=== PATIENT | male | born 1945 | race Caucasian/White ===

== ENCOUNTER 2020-06-28 18:00 | Outpatient (REF) | payer MEDICARE, SELFPAY ==
[2020-06-29 12:13] LABS: Leukocytes Stool Qualitative NEGATIVE (NEGATIVE)
== END 2020-06-28 18:01 | disposition home or self-care (01) ==
LOC: HO.10HDL 18:00
PROVIDERS: Visit Provider Internal Medicine Gastroenterology
DX: R19.7 Diarrhea, unspecified (principal)
CPT/HCPCS: 87045; 87046; 87177; 87209; 89055

== ENCOUNTER → 2020-07-05 12:52 | Outpatient (BNVA) | payer MEDICARE, SELFPAY | PROVIDERS: PCP Internal Medicine; Referring Provider Internal Medicine; Visit Provider Internal Medicine Cardiovascular Disease | DX: I25.10 Atherosclerotic heart disease of native coronary artery without angina pectoris (principal); I48.19 Other persistent atrial fibrillation; I73.9 Peripheral vascular disease, unspecified | CPT/HCPCS: 93005; 99212 ==

== ENCOUNTER 2020-07-29 08:37 | Outpatient (REF) | payer MEDICARE, SELFPAY ==
[2020-07-29 10:34] LABS: Alanine Aminotransferase 13 U/L (0-40); Albumin Level 3.5 g/dL (3.5-5.0); Alkaline Phosphatase 75 U/L (39-117); Anion Gap 11 (12-20); Aspartate Amino Transferase 13 U/L (5-37); Bilirubin Total 0.8 mg/dL (0.0-1.0); Blood Urea Nitrogen 14 mg/dL (9-16); Carbon Dioxide 29 mmol/L (22-29); Chloride 107 mmol/L (96-108); Cholesterol 113 mg/dL; Estimated Glomerular Filt Rate > 60; Glucose Fasting 98 mg/dL (60-99); HDL Cholesterol 34 mg/dL; LDL Cholesterol Calculated 69 mg/dl; Potassium 3.7 mmol/l (3.3-5.1); Sodium 143 mmol/L (135-145); Total Protein 5.6 g/dL (6.5-8.0); Triglycerides 52 mg/dL
== END 2020-07-29 08:38 | disposition home or self-care (01) ==
LOC: HO.10HDL 08:37
PROVIDERS: Visit Provider Internal Medicine
DX: E78.5 Hyperlipidemia, unspecified (principal); I73.9 Peripheral vascular disease, unspecified; I10 Essential (primary) hypertension; I25.10 Atherosclerotic heart disease of native coronary artery without angina pectoris
CPT/HCPCS: 36415; 80053; 80061

== ENCOUNTER → 2020-11-15 14:47 | Outpatient (BNVA) | payer MEDICARE, SELFPAY | PROVIDERS: PCP Internal Medicine; Visit Provider Internal Medicine Cardiovascular Disease | DX: I48.19 Other persistent atrial fibrillation (principal); I25.10 Atherosclerotic heart disease of native coronary artery without angina pectoris | CPT/HCPCS: 93005; 99212 ==

== ENCOUNTER → 2021-05-19 13:10 | Outpatient (BNVA) | payer MEDICARE, SELFPAY | PROVIDERS: PCP Internal Medicine; Referring Provider Internal Medicine; Visit Provider Internal Medicine Cardiovascular Disease | DX: I48.19 Other persistent atrial fibrillation (principal); I25.10 Atherosclerotic heart disease of native coronary artery without angina pectoris; I10 Essential (primary) hypertension; I73.9 Peripheral vascular disease, unspecified; E78.5 Hyperlipidemia, unspecified; Z95.1 Presence of aortocoronary bypass graft; Z95.5 Presence of coronary angioplasty implant and graft; Z79.899 Other long term (current) drug therapy | CPT/HCPCS: 99212 ==

== ENCOUNTER → 2021-07-18 12:51 | Outpatient (REF) | payer MEDICARE, SELFPAY ==
--- NOTE | 2021-07-18 12:54 | CA_ITS ---
Transthoracic Echocardiogram Patient (Last, First, Middle): Gustavo Pierre, Gender: Male Date of : 1945 Age: 75 Procedure Date: 07/18/2021 Procedure Type: Transthoracic Echocardiogram Location: OP Height: 182.88 cm Weight: 97.52 kg BSA: 2.20 m2 Heart Rate: bpm BP: 125 / 70 mmHg Rn Plastic Surgery: TOM Referring MD: Tono Jenkins MD Symptoms: I48.19 - Other persistent atrial fibrillation Study Quality: Fair ECG Rhythm: Atrial Fibrillation Conclusions: - The left ventricular systolic function is normal. The visually estimated ejection fraction is between 55-60%. - The basal inferior segment is hypokinetic. - Moderately increased right ventricular cavity size. - The left atrium is severely dilated. - e - There is mild dilatation of the ascending aorta measuring 4.00 cm. Findings Left Ventricle Normal left ventricular cavity size. There is mildly increased left ventricular wall thickness. The left ventricular systolic function is normal. The visually estimated ejection fraction is between 55-60%. Diastolic function is indeterminate on the basis of available data. Wall Motion Rest Echo Findings The basal inferior segment is hypokinetic. Right Ventricle Moderately increased right ventricular cavity size. There is normal right ventricular systolic function. Atria The left atrium is severely dilated. The right atrium is mildly dilated. Aortic Valve There is mild calcification of the aortic valve. There is no aortic valve stenosis. The mean gradient is 6 mmHg. There is no aortic valve regurgitation. Mitral Valve There is mild mitral annular calcification. There is mild to moderate mitral valve regurgitation. There is no mitral valve stenosis. Pulmonic Valve The pulmonic valve was not well visualized. Tricuspid Valve Normal tricuspid valve structure. There is trace tricuspid valve regurgitation. The pulmonary artery systolic pressure is normal. Great Vessels There is mild dilatation of the ascending aorta measuring 4.00 cm. Venous The inferior vena cava is normal in size and collapses greater than 50% with inspiration. Pericardium/Pleural There is no evidence of pericardial effusion. Prior Study Comparison Changes noted compared to prior study dated: 08/14/2017. See comments on wall motion, RV size, mitral regurgitation. Measurements 2D Linear Measurements IVSd: 1.07 0.6-0.9/0.6-1.0 cm LVIDd: 5.08 3.9-5.3/4.2-5.9 cm LVIDd Index: 2.31 2.4-3.2/2.2-3.1 cm/m2 LVIDs: 3.47 2.0-3.6 cm LVPWd: 1.11 0.7-1.1 cm Ao Root: 4.00 2.1-3.5 cm LA Diam: 4.90 2.7-3.8/3.0-4.0 cm LAIDs Index: 2.23 1.5-2.3 cm/m2 LV Mass: 261.62 67-162/88-224 g LV Mass Index: 118.92 43-95/49-115 g/m2 LVOT Diam: 2.10 3.0+(-)1.3 cm 2D Systolic Function EF 4C: 52.60 >55% EF 2C: 55.00 >55% EF BiP: 52.70 >55% Mitral Valve MV Pk E: 0.91 MV Decel Time: 210.00 E'Lateral: 12.90 E'Medial: 8.27 E/E' Med: 11.00 E/E' Lat: 7.10 PHT: 62.00 MVA PHT: 3.55 Decel [place]: 4.34 Aortic Valve AoV Pk Luiz: 1.69 AoV Mn Luiz: 1.14 AoV VTI: 0.39 AoV Pk Grad: 11.00 Aov Mn Grad: 6.00 TY Cont.VTI: 1.94 LVOT LVOT Pk Luiz: 0.88 LVOT Mn Luiz: 0.57 LVOT VTI: 0.22 LVOT Pk Grad: 3.00 LVOT Mn Grad: 2.00 LVOT Diam: 2.10 LVOT Area: 3.46 Diastolic Function MV Pk E: 0.91 E'Medial: 8.27 E/E' Med: 11.00 E' Laterial: 12.90 E/E' Lat: 7.10 Right Ventricle TAPSE (mm): 21.20 TVS' Luiz: 9.36 Tricuspid Valve TR Pk Luiz: 1.91 TR Pk Grad: 15.00 RA Press: 3.00 RVSP: 18.00 Great Vessels Aorta Ao Root-2D: 4.00 2.0-3.7 cm Ao Asc: 4.00 2.1-3.4 cm Ao Arch: 3.60 Updated in Other Vendor System with Status of Final Lavon Bar MD electronically signed on 07/18/2021 3:56:05 PM with status of Final
== END ==
LOC: HO.CARD 12:51
PROVIDERS: PCP Internal Medicine; Visit Provider Internal Medicine Cardiovascular Disease
DX: I48.19 Other persistent atrial fibrillation (principal)
CPT/HCPCS: 93306

== ENCOUNTER → 2021-11-15 12:52 | Outpatient (BNVA) | payer MEDICARE, SELFPAY | PROVIDERS: PCP Internal Medicine; Referring Provider Internal Medicine; Visit Provider Internal Medicine Cardiovascular Disease | DX: I25.10 Atherosclerotic heart disease of native coronary artery without angina pectoris (principal); I48.19 Other persistent atrial fibrillation | CPT/HCPCS: 93005; 99212 ==

== ENCOUNTER 2022-04-11 07:30 | Outpatient (REF) | payer MEDICARE, SELFPAY ==
[2022-04-11 11:00] LABS: MANUAL DIFF FLAG NO
[2022-04-11 11:13] LABS: Basophils Absolute Auto 0.1 X10*3/uL (0.0-0.2); Basophils Percent Auto 0.8 % (0-2); Eosinophils Absolute Auto 0.1 X10*3/uL (0.0-0.4); Eosinophils Percent Auto 1.6 % (0-4); Hematocrit 43.1 % (42.0-52.0); Hemoglobin 14.2 g/dl (14.0-18.0); Imm Gran Abs Auto 0.05 X10*3/uL (0.00-0.03); Imm Gran Pct Auto 0.6 % (0.0-0.4); Lymphocytes Absolute Auto 1.7 X10*3/uL (1.2-4.9); Mean Corpuscular HGB Conc 32.9 g/dl (31.0-36.0); Mean Corpuscular Hemoglobin 31.7 pg (27.0-33.0); Mean Corpuscular Volume 96.2 fL (80.0-98.0); Mean Platelet Volume 11.3 fL (9.4-12.4); Monocytes Absolute Auto 0.8 X10*3/uL (0.1-1.2); Monocytes Percent Auto 10.5 % (2-11); Neutrophils Percent Auto 64.5 % (45-73); Platelet Count 197 X10*3/uL (160-400); Red Blood Count 4.48 X10*6/uL (4.60-5.80); White Blood Count 7.7 X10*3/uL (4.8-10.8)
[2022-04-11 11:28] LABS: Alanine Aminotransferase 15 U/L (0-40); Albumin Level 3.7 g/dL (3.5-5.0); Alkaline Phosphatase 86 U/L (39-117); Anion Gap 14 (12-20); Aspartate Amino Transferase 16 U/L (5-37); Bilirubin Total 1.2 mg/dL (0.0-1.0); Blood Urea Nitrogen 13 mg/dL (9-16); Calcium 8.4 mg/dL (8.4-10.2); Carbon Dioxide 32 mmol/L (22-29); Chloride 102 mmol/L (96-108); Cholesterol 128 mg/dL; Estimated Glomerular Filt Rate > 60; Glucose Fasting 97 mg/dL (60-99); HDL Cholesterol 34 mg/dL; LDL Cholesterol Calculated 85 mg/dl; Potassium 3.1 mmol/L (3.3-5.1); Sodium 145 mmol/L (135-145); Total Protein 5.9 g/dL (6.5-8.0); Triglycerides 48 mg/dL
[2022-04-11 11:49] LABS: PSA,Total (Free>4and<10) 3.96 ng/mL (0.00-4.00)
== END 2022-04-11 07:31 | disposition home or self-care (01) ==
LOC: HO.10HDL 07:30
PROVIDERS: Visit Provider Internal Medicine
DX: Z00.01 Encounter for general adult medical examination with abnormal findings (principal); N40.0 Benign prostatic hyperplasia without lower urinary tract symptoms; E78.5 Hyperlipidemia, unspecified; I10 Essential (primary) hypertension; I25.10 Atherosclerotic heart disease of native coronary artery without angina pectoris; I48.19 Other persistent atrial fibrillation; I73.9 Peripheral vascular disease, unspecified; Z12.5 Encounter for screening for malignant neoplasm of prostate
CPT/HCPCS: 36415; 80053; 80061; 84153; 85025

== ENCOUNTER 2022-04-28 07:55 | Outpatient (REF) | payer MEDICARE, SELFPAY | END 2022-04-28 07:56 | disposition home or self-care (01) | LOC: HO.10HDL 07:55 | PROVIDERS: Visit Provider Internal Medicine | DX: E87.6 Hypokalemia (principal) | CPT/HCPCS: 36415; 84132 ==

== ENCOUNTER → 2022-05-16 12:22 | Outpatient (BNVA) | payer MEDICARE, SELFPAY | PROVIDERS: PCP Internal Medicine; Referring Provider Internal Medicine; Visit Provider Internal Medicine Cardiovascular Disease | DX: I25.10 Atherosclerotic heart disease of native coronary artery without angina pectoris (principal); I48.19 Other persistent atrial fibrillation; I71.20 Thoracic aortic aneurysm, without rupture, unspecified | CPT/HCPCS: 99212 ==

== ENCOUNTER 2022-10-12 12:11 | Outpatient (REF) | payer MEDICARE, SELFPAY ==
[2022-10-12 13:21] LABS: MANUAL DIFF FLAG NO
[2022-10-12 13:29] LABS: Basophils Absolute Auto 0.1 X10*3/uL (0.0-0.2); Basophils Percent Auto 0.8 % (0-2); Eosinophils Absolute Auto 0.1 X10*3/uL (0.0-0.4); Eosinophils Percent Auto 1.1 % (0-4); Hematocrit 44.9 % (42.0-52.0); Hemoglobin 14.7 g/dl (14.0-18.0); Imm Gran Abs Auto 0.04 X10*3/uL (0.00-0.03); Imm Gran Pct Auto 0.6 % (0.0-0.4); Lymphocytes Absolute Auto 1.7 X10*3/uL (1.2-4.9); Lymphocytes Percent Auto 24.1 % (20-40); Mean Corpuscular HGB Conc 32.7 g/dl (31.0-36.0); Mean Corpuscular Hemoglobin 32.2 pg (27.0-33.0); Mean Corpuscular Volume 98.2 fL (80.0-98.0); Mean Platelet Volume 11.6 fL (9.4-12.4); Monocytes Absolute Auto 0.7 X10*3/uL (0.1-1.2); Monocytes Percent Auto 9.4 % (2-11); Neutrophils Absolute Auto 4.6 x10*3/uL (2.0-8.3); Platelet Count 163 X10*3/uL (160-400); Red Blood Count 4.57 X10*6/uL (4.60-5.80); Red Cell Distribution Width 12.6 % (11.0-16.0); White Blood Count 7.2 X10*3/uL (4.8-10.8)
[2022-10-12 14:14] LABS: Alanine Aminotransferase 12 U/L (0-40); Anion Gap 10 (12-20); Aspartate Amino Transferase 14 U/L (5-37); Blood Urea Nitrogen 16 mg/dL (9-16); Calcium 8.4 mg/dL (8.4-10.2); Carbon Dioxide 29 mmol/L (22-29); Chloride 106 mmol/L (96-108); Cholesterol 112 mg/dL; Estimated Glomerular Filt Rate > 60; Glucose Fasting 94 mg/dL (60-99); HDL Cholesterol 31 mg/dL; LDL Cholesterol Calculated 71 mg/dl; Potassium 3.9 mmol/L (3.3-5.1); Sodium 141 mmol/L (135-145); Triglycerides 53 mg/dL
[2022-10-12 14:40] LABS: PSA,Total (Free>4and<10) 5.53 ng/mL (0.00-4.00); Vitamin D 25-OH Total 12.3 ng/mL (>30)
[2022-10-16 13:29] LABS: Free Prostate Spec Ag 0.6 ng/mL; Percent Free Prostate Spec Ag 11 % (calc) (>25); Prostate Specific Ag Total 5.3 ng/mL (< OR = 4.0)
== END 2022-10-12 12:12 | disposition home or self-care (01) ==
LOC: HO.10HDL 12:11
PROVIDERS: Visit Provider Internal Medicine
DX: Z12.5 Encounter for screening for malignant neoplasm of prostate (principal); I10 Essential (primary) hypertension; I25.10 Atherosclerotic heart disease of native coronary artery without angina pectoris; I48.19 Other persistent atrial fibrillation; I71.20 Thoracic aortic aneurysm, without rupture, unspecified; I73.9 Peripheral vascular disease, unspecified; N40.0 Benign prostatic hyperplasia without lower urinary tract symptoms
CPT/HCPCS: 36415; 80048; 80061; 82306; 84153; 84154; 84450; 84460; 85025

== ENCOUNTER → 2022-10-30 15:00 | Outpatient (REF) | payer MEDICARE, SELFPAY ==
--- NOTE | 2022-10-30 15:03 | CA_ITS ---
Transthoracic Echocardiogram Patient (Last, First, Middle): Gustavo Pierre, Gender: Male Date of : 1945 Age: 77 Procedure Date: 10/30/2022 Procedure Type: Transthoracic Echocardiogram Location: OP Height: 182.88 cm Weight: 96.16 kg BSA: 2.18 m2 Heart Rate: bpm BP: 128 / 70 mmHg Technology Training Associate: Referring MD: Tono Jenkins MD Revenue Enforcement Agent: Tono Jenkins MD Symptoms: I71.20 - Thoracic aortic aneurysm, without rupture, unspecified Study Quality: Adequate ECG Rhythm: Atrial Fibrillation Conclusions: - 1. Normal LV systolic function with mild LVH with normal filling pressures 2. Mildly increased right ventricular size with [id number] RV systolic dysfunction 3. Severely dilated left atrium 4. Normal cardiac valvular Dopplers 5. Normal RV systolic pressure 6. Mildly dilated ascending aorta at 4 cm 7. No gross pericardial effusion Findings Left Ventricle Normal left ventricular size and systolic function. There is mildly increased left ventricular wall thickness. The visually estimated ejection fraction is between 55-60%. Normal left ventricular filling pressures. E/E prime ratio is <8, consistent with normal filling pressures. Right Ventricle Mildly increased right ventricular cavity size. There is mild to moderately decreased right ventricular systolic function. Atria The left atrium is severely dilated. There is lipomatous hypertrophy of the interatrial septum. There is no evidence of interatrial shunt. The right atrium is moderately dilated. Aortic Valve There is mild calcification of the aortic valve. There is mild thickening of the aortic valve. There is no aortic valve stenosis. There is no aortic valve regurgitation. Mitral Valve There is mild anterior and posterior mitral leaflet thickening. There is mild mitral annular calcification. There is trace mitral valve regurgitation. There is no mitral valve stenosis. Pulmonic Valve The pulmonic valve was not well visualized. Tricuspid Valve Likely normal tricuspid valve structure and function. There is mild tricuspid valve regurgitation. The right ventricular systolic pressure is normal. The right ventricular systolic pressure is 24 mmHg. Normal right atrial pressure. There is no evidence of pulmonary hypertension. Great Vessels The pulmonary artery was not well visualized. There is mild dilatation of the ascending aorta measuring 4.00 cm. Venous The inferior vena cava is normal in size and collapses greater than 50% with inspiration. Pericardium/Pleural There is no evidence of pericardial effusion. Prior Study Comparison No significant change compared to prior study dated: 07/18/2021. Measurements 2D Linear Measurements IVSd: 1.31 0.6-0.9/0.6-1.0 cm LVIDd: 4.22 3.9-5.3/4.2-5.9 cm LVIDd Index: 1.94 2.4-3.2/2.2-3.1 cm/m2 LVIDs: 2.78 2.0-3.6 cm LVPWd: 1.35 0.7-1.1 cm Ao Root: 3.70 2.1-3.5 cm LA Diam: 5.50 2.7-3.8/3.0-4.0 cm LAIDs Index: 2.52 1.5-2.3 cm/m2 LV Mass: 260.53 67-162/88-224 g LV Mass Index: 119.51 43-95/49-115 g/m2 LVOT Diam: 2.30 3.0+(-)1.3 cm 2D Systolic Function EF 4C: 62.30 >55% EF 2C: 56.30 >55% EF BiP: 58.50 >55% Mitral Valve MV Pk E: 0.92 MV Decel Time: 285.00 E'Lateral: 14.60 E'Medial: 10.40 E/E' Med: 8.80 E/E' Lat: 6.30 PHT: 83.00 MVA PHT: 2.65 Decel [place]: 3.22 Aortic Valve AoV Pk Luiz: 1.85 AoV Mn Luiz: 1.13 AoV VTI: 0.38 AoV Pk Grad: 14.00 Aov Mn Grad: 6.00 TY Cont.VTI: 1.27 LVOT LVOT Pk Luiz: 0.65 LVOT Mn Luiz: 0.38 LVOT VTI: 0.12 LVOT Pk Grad: 2.00 LVOT Mn Grad: 1.00 LVOT Diam: 2.30 LVOT Area: 4.15 Diastolic Function MV Pk E: 0.92 E'Medial: 10.40 E/E' Med: 8.80 E' Laterial: 14.60 E/E' Lat: 6.30 Right Ventricle TAPSE (mm): 15.00 TVS' Luiz: 6.00 Tricuspid Valve TR Pk Luiz: 2.30 TR Pk Grad: 21.00 RA Press: 3.00 RVSP: 24.00 Great Vessels Aorta Ao Root-2D: 3.70 2.0-3.7 cm Ao Asc: 4.00 2.1-3.4 cm Pulmonary Valve PV Pk Luiz: 0.67 Peak PV Grad: 2.00 Updated in Other Vendor System with Status of Final Tono Jenkins MD electronically signed on 10/31/2022 11:59:14 AM with status of Final
== END ==
LOC: HO.CARD 15:00
PROVIDERS: Visit Provider Internal Medicine Cardiovascular Disease
DX: I71.20 Thoracic aortic aneurysm, without rupture, unspecified (principal)
CPT/HCPCS: 93306

== ENCOUNTER → 2022-11-14 12:20 | Outpatient (BNVA) | payer MEDICARE, SELFPAY | PROVIDERS: PCP Internal Medicine; Referring Provider Internal Medicine; Visit Provider Internal Medicine Cardiovascular Disease | DX: I48.19 Other persistent atrial fibrillation (principal); I25.10 Atherosclerotic heart disease of native coronary artery without angina pectoris; I71.20 Thoracic aortic aneurysm, without rupture, unspecified | CPT/HCPCS: 93005; 99212 ==

== ENCOUNTER 2023-02-27 11:29 | Outpatient (AMB) | payer MEDICARE, SELFPAY ==
--- NOTE | 2023-02-27 11:33 | MHC.PC.OV ---
Vital Signs 02/27/23 11:37 Height 6 ft Weight 205 lb BMI 27.8 BP 118/66 Blood Pressure Location Lt brachial Position Sitting Pulse 81 Pulse Source Pulse Oximeter Pulse Oximetry (%) 97 Oxygen Delivery Method Room Air Intake Visit Reasons: cataract surgery, Dr. Hernandez Intake Note: Pt is here today for pre-op Lt eye phacoemulsification w/ an intraocular lens implant w/ Dr. Hernandez Allergies No Known Allergies Allergy (Verified 02/27/23 11:41) Medication List - Last Reconciled 02/27/23 by Krupa Vail MD apixaban 5 mg PO BID atenolol 100 mg PO DAILY atenolol 50 mg PO DAILY atorvastatin 80 mg PO DAILY cilostazol 100 mg PO BID isosorbide mononitrate ER 30 mg PO DAILY potassium chloride ER 10 mEq PO DAILY tamsulosin 0.4 mg PO DAILY Tobacco use date assessed: 02/27/23 Fall risk assessment: No Falls in past year Last assessed Fall Risk: 02/27/23 Dental Screening Dental Screen Date: 02/27/23 Did you have a dental visit in the last 12 months?: Yes Did you have a dental problem in the last 6 months where you did not have access to dental care?: No Was dental information given to patient?: Patient has dentist HPI cataract surgery, Dr. Hernandez HPI Details 77-year-old male with history of thoracic aortic aneurysm, benign prostatic hyperplasia, persistent atrial fibrillation currently on apixaban, with history of peripheral vascular disease and hypertension, here today for preoperative exam for left eye phacoemulsification with an intraocular lens implant scheduled for 03/08/2023, requested by Dr. Hernandez. He has been feeling well, with no complaints of any chest pain no lightheadedness, no abnormal bleeding tendencies, or shortness of breath. Blood pressure stable controlled on present treatment he PFSH Medical History CAD (coronary artery disease) Heel pain, bilateral HTN (hypertension) Hyperlipidemia Persistent atrial fibrillation PVD (peripheral vascular disease) Smokes one pack per day or less and unmotivated to quit Surgical History History of repair of aneurysm of abdominal aorta using endovascular stent graft Hx of aorto-femoral bypass Hx of basal cell carcinoma excision Hx of colonoscopy Hx of heart bypass surgery Family History Father No problems noted. Mother No problems noted. Family/Other AAA (abdominal aortic aneurysm) CVD (cardiovascular disease) Cancer Social History Housing: House Patient Tobacco Use Status: Current everyday Tobacco user Cigarette Packs Per Day: 1 Cigarettes Per Day: 20 e-Cigarette/Vaping Use: Never Used service: No Current occupational status: employed Cognitive needs: No Hearing needs: No Vision needs: No Questionnaire Thrive Questionnaire Date Thrive assessed: 04/10/22 ARTUR-7 AMB Questionnaire ARTUR-7 Date ARTUR - 7 assessed: 04/10/22 Source: Developed by Drs. Alonso Dave, Juanita Gtz, Satish Alonso and colleagues, with an educational donald from [email or web address]. Review of Systems Const Denies chills, Denies fatigue, Denies fever(s), Denies frequent falls, Denies headache(s), Denies weakness, Denies weight gain and Denies weight loss Eyes Reports blurry vision ENT Denies dizziness, Denies headache(s), Denies hoarseness, Denies nasal congestion and Denies post nasal drip Card Denies chest pain, Denies leg edema, Denies lightheadedness, Denies palpitations, Denies dyspnea, Denies dyspnea on exertion, Denies orthopnea and Denies other (loss of consciousness) Resp Denies cough, Denies dyspnea and Denies dyspnea on exertion GI Denies abdominal pain, Denies melena, Denies hematochezia, Denies change in bowel habits, Denies change in stool character and Denies heartburn Reports no additional complaints Musc Denies abnormal gait, Denies muscle weakness, Denies numbness, Denies radiating pain into limb and Denies tingling Skin/Breast Denies rash, Denies sores and Denies unusual bruising Neuro Denies abnormal gait, Denies dizziness, Denies frequent falls, Denies headache(s), Denies numbness, Denies tingling and Denies weakness Endo Denies fatigue and Denies palpitations Remigio/Lymph Reports easy bruising Physical exam (Primary Care) Vital Signs: Last Vital Signs Pulse 81 02/27/23 11:37 BP 118/66 02/27/23 11:37 Pulse Ox 97 02/27/23 11:37 Oxygen Delivery Method Room Air 02/27/23 11:37 BMI result Body Mass Index 27.8 Tobacco/Smoking Status: Tobacco use Status Tobacco use date assessed 02/27/23 02/27/23 11:42 Patient Tobacco Use Status Current everyday Tobacco 02/27/23 11:42 e-Cigarette/Vaping Use Never Used 02/27/23 11:42 Thrive Assessment: Date of Thrive Assessment Date Thrive assessed 04/10/22 02/27/23 11:42 Const Other: Alert oriented x3, no acute distress noted ambulatory with normal gait HENMT Head: Yes normocephalic and Yes atraumatic Ears: EAC's normal and hearing grossly impaired General nose exam: No nasal discharge present Face and sinus: Yes face symmetric Mouth: oropharynx normal and moist mucous membranes Eyes General: appearance normal, both eyes and all related structures Neck Neck: Yes full ROM, Yes no lymphadenopathy, Yes supple and No anterior neck swelling Thyroid: Thyroid normal Resp Effort & Inspection: normal respiratory effort and able to speak in complete sentences Auscultation: clear to auscultation bilaterally Cardio Rhythm: abnormal rhythm irregularly irregular GI Inspection: Yes normal to inspection Palpation (GI): Soft to palpation, nontender, no guarding and no masses Auscultation: normal bowel sounds General: Yes no CVA tenderness Back/Spine/Pelvis Back: no CVA tenderness and No back tenderness Skin Other: Dry skin all throughout, no rashes Neuro General: gait normal, moves all extremities, Normal light touch and pain sensation, no focal motor deficits and CN's II-XI intact bilaterally Extrem Other: Decreased pedal pulses bilaterally General: Yes full ROM, Yes no joint enlargement, Yes no clubbing, cyanosis or edema, Yes no pedal edema, Yes no calf tenderness and Yes normal gait Assessment and Plan Assessment & Plan (1) Preoperative examination: Code(s): Z01.818 - Encounter for other preprocedural examination Plan: 77-year-old male, here for pre-op clearance for left cataract surgery, requested by Dr. Hernandez , scheduled for 03/08/2023. He has history of coronary artery disease with remote history of CABG x3 . He has persistent atrial fibrillation and peripheral vascular disease, currently anticoagulated with apixaban, with no unusual bleeding tendencies reported. He continues to smoke cigarettes , has been cutting back, with no respiratory complaints and no chronic cough. He has hypertension, which is controlled on present treatment. He has no pulmonary or cardiac complaints, and preop examination was within normal limits. EKG done 10/30/2022 showed atrial fibrillation with right axis deviation, and Echocardiogram done 11/14/2022 showed Normal LV systolic function with mild LVH, normal filling pressures, mildly increased right ventricular size with [id number] RV systolic dysfunction, Severely dilated left atrium?, normal cardiac valvular Dopplers, Normal RV systolic pressure ,mMildly dilated ascending aorta at 4 cm?, and no gross pericardial effusion seen. No. need to withhold apixaban prior surgery. . He has a low cardiac risk index? for proposed surgery ? ? ? (2) Thoracic aortic aneurysm: Code(s): I71.20 - Thoracic aortic aneurysm, without rupture, unspecified Plan: Asymptomatic, currently being followed by vascular surgery (3) Benign prostate hyperplasia: Code(s): N40.0 - Benign prostatic hyperplasia without lower urinary tract symptoms Plan: Currently on tamsulosin 0.4 mg daily (4) PVD (peripheral vascular disease): Code(s): I73.9 - Peripheral vascular disease, unspecified Plan: On cilostazol 100 mg 1 tablet twice a day, patient strongly urged to quit smoking, is cutting back, but unable to completely quit the habit (5) CAD (coronary artery disease): Code(s): I25.10 - Atherosclerotic heart disease of [place] coronary artery without angina pectoris Plan: Currently on atenolol 100 mg daily, isosorbide mononitrate 30 mg daily and atorvastatin 80 mg daily, (6) HTN (hypertension): Code(s): I10 - Essential (primary) hypertension Plan: Blood pressure at goal of less than 130/80. Continue with current medication. Reinforced importance of following a low sodium diet, getting regular exercise, and lowering stress levels. (7) Persistent atrial fibrillation: Code(s): I48.19 - Other persistent atrial fibrillation Plan: Currently on apixaban 5 mg 1 tablet twice a day (8) Smokes one pack per day or less and unmotivated to quit: Code(s): F17.210 - Nicotine dependence, cigarettes, uncomplicated Plan: Patient strongly advised to stop smoking, as smoking damages blood vessels, degenerative of joints and spine, damage to lungs and heart., predisposes to developing certain cancers like lung, breast, bladder, colon. Recommended to try decreasing cigarette use by 1-2 cigarettes a day. Advised to monitor what triggers are for smoking so that this can be discussed on the next office visit. We can discuss different options to quit smoking when ready. Coding Level of Care Code Est Pt Level 4 (40227) Diagnoses Preoperative examination Z01.818 Thoracic aortic aneurysm I71.20 Benign prostate hyperplasia N40.0 PVD (peripheral vascular disease) I73.9 CAD (coronary artery disease) I25.10 HTN (hypertension) I10 Persistent atrial fibrillation I48.19 Smokes one pack per day or less and unmotivated to quit F17.210
[2023-02-27 11:37] VITALS: BP 118/66; PULSE 81; O2SAT 97; BMI 27.8
== END 2023-02-27 13:49 | disposition home or self-care (01) ==
PROVIDERS: PCP Internal Medicine; Visit Provider Internal Medicine
DX: I10 Essential (primary) hypertension (principal); I71.20 Thoracic aortic aneurysm, without rupture, unspecified; I48.19 Other persistent atrial fibrillation; F17.210 Nicotine dependence, cigarettes, uncomplicated; I73.9 Peripheral vascular disease, unspecified; Z01.818 Encounter for other preprocedural examination; N40.0 Benign prostatic hyperplasia without lower urinary tract symptoms; I25.10 Atherosclerotic heart disease of native coronary artery without angina pectoris
CPT/HCPCS: 99214

== ENCOUNTER → 2023-11-01 08:29 | Outpatient (REF) | payer MEDICARE, SELFPAY ==
--- NOTE | ~2023-11-01 | NM_ITS ---
Myocardial perfusion study Indication: Atherosclerotic heart disease to evaluate for myocardial ischemia Technique: The patient was brought in for a Lexiscan perfusion study on 11/01/2023. Patient performed low-level exercise and was injected 0.4 mg of Lexiscan intravenously. Within a minute of injection, 30 mCi of sestamibi was given intravenously. Images were obtained using the SPECT gamma camera interlaced with the gating device. Images were obtained in supine position. Resting perfusion study was performed on 11/08/2023. Patient was administered 30 mCi of sestamibi intravenously at rest. Images were then obtained in supine position. Images obtained with and without CT attenuation. Total DLP 134 mGy-cm. Images were processed with the software and compared side to side in short axis, horizontal long axis and vertical long axis views. Findings: The stress perfusion study showed non attenuated images show mildly reduced uptake in the inferior and inferolateral wall of the LV myocardium. Remainder of the LV myocardium is normally perfused. Attenuation corrected images show overall normal uptake of radiotracer in all segments of LV myocardium with minimal thinning of the apex.. The gated study shows reduced LV systolic function with calculated LVEF of 49%. LV cavity is mildly dilated size. The gated study shows reduced wall thickening and contraction of basal inferior segments. Resting study shows no significant change in perfusion pattern compared to stress perfusion study. Gating at rest reveals basal inferior wall motion abnormality with ejection fraction at 54%. The findings are consistent with no clear reversible defect suggestive of ischemia. NM/NM yvonne perf SPECT rest & str Impression: 1. Myocardial perfusion imaging study shows likely normal myocardial perfusion 2. Gated LVEF is 49% 3. Transient ischemic dilatation not present EKG is nondiagnostic for ischemia
--- NOTE | 2023-11-01 09:17 | CA_ITS ---
Transthoracic Echocardiogram Patient (Last, First, Middle): Gustavo Chávez, Gender: Male Date of : 1945 Age: 78 Procedure Date: 11/01/2023 Procedure Type: Transthoracic Echocardiogram Location: OP Height: 182.88 cm Weight: 99.79 kg BSA: 2.22 m2 Heart Rate: bpm BP: 110 / 72 mmHg Parole Agent: TO Referring MD: Tono Jenkins MD Symptoms: I71.20 - Thoracic aortic aneurysm, without rupture, unspecified Study Quality: Fair Conclusions: - Normal left ventricular cavity size. There is mildly increased left ventricular wall thickness. The left ventricular systolic function is low normal. The visually estimated ejection fraction is between 50-55%. - Mildly increased right ventricular cavity size. There is mild to moderately decreased right ventricular systolic function. - The left atrium is moderately dilated. The right atrium is mildly dilated. - There is mild dilatation of the sinuses of Valsalva measuring 4.15 cm and mild dilatation of the ascending aorta measuring 4.30 cm. Findings Left Ventricle Normal left ventricular cavity size. There is mildly increased left ventricular wall thickness. The left ventricular systolic function is low normal. The visually estimated ejection fraction is between 50-55%. There is no evidence of regional wall motion abnormalities. Diastolic function is indeterminate on the basis of available data. Right Ventricle Mildly increased right ventricular cavity size. There is mild to moderately decreased right ventricular systolic function. Atria The left atrium is moderately dilated. The right atrium is mildly dilated. Aortic Valve There is a normal trileaflet aortic valve. There is mild calcification of the aortic valve. There is no aortic valve stenosis. There is no aortic valve regurgitation. Mitral Valve There is mild mitral annular calcification. There is mild mitral valve regurgitation. There is no mitral valve stenosis. Pulmonic Valve The pulmonic valve is normal. There is trace pulmonic valve regurgitation. Tricuspid Valve Normal tricuspid valve structure. There is trace tricuspid valve regurgitation. Moderately elevated right atrial pressure. There is no evidence of pulmonary hypertension. Great Vessels There is mild dilatation of the sinuses of Valsalva measuring 4.15 cm and mild dilatation of the ascending aorta measuring 4.30 cm. The visualized portions of the pulmonary artery and branches are normal. Venous The inferior vena cava is mildly dilated and collapses greater than 50% with inspiration. Pericardium/Pleural There is no evidence of pericardial effusion. Measurements 2D Linear Measurements IVSd: 1.22 0.6-0.9/0.6-1.0 cm LVIDd: 4.66 3.9-5.3/4.2-5.9 cm LVIDd Index: 2.10 2.4-3.2/2.2-3.1 cm/m2 LVIDs: 3.56 2.0-3.6 cm LVPWd: 1.06 0.7-1.1 cm LA Diam: 4.50 2.7-3.8/3.0-4.0 cm LAIDs Index: 2.03 1.5-2.3 cm/m2 LV Mass: 242.38 67-162/88-224 g LV Mass Index: 109.18 43-95/49-115 g/m2 LVOT Diam: 2.40 3.0+(-)1.3 cm 2D Systolic Function EF 4C: 46.50 >55% EF 2C: 48.60 >55% EF BiP: 46.10 >55% Mitral Valve MV VTI: 0.31 MV Pk Luiz: 0.98 MV Mn Luiz: 0.52 MV Pk Grad: 4.00 MV Mn Grad: 1.00 MV Pk E: 0.92 MV Decel Time: 185.00 E'Lateral: 12.20 E'Medial: 8.20 E/E' Med: 11.20 E/E' Lat: 7.50 PHT: 54.00 MVA PHT: 4.07 MVA Continuity: 1.94 Decel [place]: 5.06 MR Vol - PW Dopp: 12.60 MR VTI: 1.80 MR ERO: 7.00 MR Alias Luiz: 0.39 MR RAD: 0.40 Aortic Valve AoV Pk Luiz: 1.49 AoV Mn Luiz: 1.07 AoV VTI: 0.32 AoV Pk Grad: 9.00 Aov Mn Grad: 5.00 TY Cont.VTI: 1.89 LVOT LVOT Pk Luiz: 0.66 LVOT Mn Luiz: 0.41 LVOT VTI: 0.13 LVOT Pk Grad: 2.00 LVOT Mn Grad: 1.00 LVOT Diam: 2.40 LVOT Area: 4.52 Diastolic Function MV Pk E: 0.92 E'Medial: 8.20 E/E' Med: 11.20 E' Laterial: 12.20 E/E' Lat: 7.50 Right Ventricle TAPSE (mm): 14.10 TVS' Luiz: 7.25 Tricuspid Valve TR Pk Luiz: 1.77 TR Pk Grad: 13.00 RA Press: 8.00 RVSP: 21.00 Great Vessels Aorta Sinus of Valsalva: 4.15 2.0-3.5 cm Ao Asc: 4.30 2.1-3.4 cm Ao Arch: 3.10 Updated in Other Vendor System with Status of Final Yuan Amaro MD electronically signed on 11/02/2023 7:20:24 PM with status of Final
--- NOTE | 2023-11-01 09:17 | CA_ITS ---
Acquisition Time: 2023-11-01 10:06:51 Total Exercise Time: 00:02:00 Test Indications: AFIB,CAD Medications: APIXABAN ATENOLOL ATORVASTATIN CILOSTAZOL ISOSORBIDE TAMSULOSIN Protocol: LEXISCAN Max HR: 098 BPM 69% of Pred: 141 BPM Max BP: 134/072 mmHG Max Work Load: 1.0 METS Pharmacological stress test with Lexiscan injection while sitting and marching in place due to low 60s heart rate, with frequent PVCs and ventricular cuplets, with normotensive response to injection, with nondiagnoisitic EKGs. Nuclear images pending. Test reviewed with Dr. Amaro. Referred By: Tono Jenkins Overread By: Lina Blake
== END ==
LOC: HO.CARD 08:29
PROVIDERS: PCP Internal Medicine; Visit Provider Internal Medicine Cardiovascular Disease
DX: I71.20 Thoracic aortic aneurysm, without rupture, unspecified (principal); I25.10 Atherosclerotic heart disease of native coronary artery without angina pectoris
CPT/HCPCS: 78452; 93017; 93306; A9500; J0280; J2785

== ENCOUNTER → 2023-11-01 09:17 | Outpatient (BNV) | payer MEDICARE, SELFPAY | PROVIDERS: PCP Internal Medicine; Visit Provider Nurse Practitioner | DX: I25.10 Atherosclerotic heart disease of native coronary artery without angina pectoris (principal) | CPT/HCPCS: 78452; 93016; 93018; 93350 ==

== ENCOUNTER 2023-11-20 13:24 | Outpatient (AMB) | payer BC, SELFPAY ==
[2023-11-20 13:28] VITALS: BP 130/74; PULSE 76; BMI 27.8
--- NOTE | 2023-11-20 13:28 | A.OFFVIS_ITS ---
Vital Signs 11/20/23 13:28 Height 6 ft Weight 205 lb 0.478 oz BMI 27.8 BP 130/74 Blood Pressure Location Lt brachial Position Sitting Pulse 76 Intake Visit Reasons: 1 yr s/p echo Intake Note: 1 year follow-up after echo with ekg feeling good Primary Health Care Nurse Required: No Allergies No Known Allergies Allergy (Verified 08/22/23 14:02) Medication List - Last Reconciled 11/20/23 by Tono Jenkins MD apixaban 5 mg PO BID atenolol 50 mg PO DAILY atenolol 100 mg PO DAILY atorvastatin 80 mg PO DAILY cilostazol 100 mg PO BID isosorbide mononitrate ER 30 mg PO DAILY potassium chloride ER 10 mEq PO DAILY tamsulosin 0.4 mg PO DAILY HPI Comments Details: Gustavo comes for follow-up. He had recent myocardial perfusion imaging which was within normal limits. LV ejection fraction 50-55%. Mildly dilated ascending aorta which has remained stable. Continues unfortunately to smoke. No recurrent palpitations or progressive symptoms of heart failure. Continues to have exertional shortness of breath. Denies any orthopnea, PND, leg edema. Continues to have symptoms of claudication walking 100 yd, sees vascular surgery at [facility]. No bleeding issues or neurologic events. Takes all his medications regularly. [facility] Medical History Heel pain, bilateral Smokes one pack per day or less and unmotivated to quit Persistent atrial fibrillation HTN (hypertension) Hyperlipidemia CAD (coronary artery disease) PVD (peripheral vascular disease) Surgical History History of repair of aneurysm of abdominal aorta using endovascular stent graft Hx of aorto-femoral bypass Hx of heart bypass surgery Hx of colonoscopy Hx of basal cell carcinoma excision Family History Father No problems noted. Mother No problems noted. Family/Other AAA (abdominal aortic aneurysm) CVD (cardiovascular disease) Cancer Social History Housing: House Patient Tobacco Use Status: Current everyday Tobacco user Cigarette Packs Per Day: 1 Cigarettes Per Day: 20 e-Cigarette/Vaping Use: Never Used service: No Current occupational status: employed Cognitive needs: No Hearing needs: No Vision needs: No Review of Systems Const Denies chills, Denies fatigue, Denies fever(s), Denies frequent falls, Denies weakness, Denies weight gain and Denies weight loss ENT Denies dizziness Card Denies chest pain, Denies leg edema, Denies lightheadedness, Denies palpitations, Denies dyspnea, Denies dyspnea on exertion, Denies orthopnea and Denies other (loss of consciousness) Resp Denies cough, Denies dyspnea and Denies dyspnea on exertion GI Denies hematochezia and Denies change in stool character Musc Denies abnormal gait, Denies muscle weakness, Denies numbness, Denies radiating pain into limb and Denies tingling Neuro Denies abnormal gait, Denies dizziness, Denies frequent falls, Denies numbness, Denies tingling and Denies weakness Endo Denies fatigue and Denies palpitations Physical Exam Vital Signs: Last Vital Signs Pulse 76 11/20/23 13:28 BP 130/74 11/20/23 13:28 BMI result Body Mass Index 27.8 Const General: cooperative, comfortable, no acute distress, alert and awake Nutritional Appearance: overweight Orientation/consciousness: patient oriented x3 Limitations: no limitations Neck Neck: Yes trachea midline, Yes supple and Yes no JVD Chest Chest palpation & inspection: normal inspection of the chest Resp Effort & Inspection: normal respiratory effort Auscultation: clear to auscultation bilaterally and diminished lung sounds Cardio Jugular venous distension: no JVD Rhythm: abnormal rhythm irregularly irregular Heart sounds: S1 normal heart sound present and S2 normal heart sound present Peripheral pulses: posterior tibial pulses not present and dorsalis pedis pulses not present GI Auscultation: normal bowel sounds Neuro General: patient oriented x3 and no focal motor deficits Extrem General: No clubbing, No cyanosis and Yes edema (Right lower extremity) Psych Appearance: grossly normal Office Procedures EKG Details: EKG shows atrial fibrillation with PVCs with deep T-wave inversion inferior leads [id number]-[id number], Complete Assessment & Plan Assessment & Plan (1) CAD (coronary artery disease): Code(s): I25.10 - Atherosclerotic heart disease of [place] coronary artery without angina pectoris Category: Medical Plan: CAD with remote coronary artery bypass grafting with recent surveillance myocardial perfusion imaging within normal limits. Continue aggressive medical therapy. Currently on dual antianginal therapy with atenolol and isosorbide doing well. Advised to call me with any new symptoms. Currently on full oral anticoagulation Eliquis and therefore would avoid additional antiplatelet agent. Continue high-intensity statin therapy. Advised lipid panel near future. Target goal LDL less than 70 mg/dL. (2) Persistent atrial fibrillation: Code(s): I48.19 - Other persistent atrial fibrillation Category: Medical Plan: Persistent and rate control atrial fibrillation without any new symptoms. No signs or symptoms of heart failure. Continue rate control strategy. Continue full oral anticoagulation, currently on Eliquis. Semi annual renal function test is recommended. (3) Thoracic aortic aneurysm: Code(s): I71.20 - Thoracic aortic aneurysm, without rupture, unspecified Category: Medical Plan: Mild thoracic aortic aneurysm which has remained stable. No interventions required. Continue aggressive vascular risk factor modifications above. Continue to monitor annually by echocardiogram. Will follow up in the clinic 1 year's time after an echocardiogram. Thank you for allowing me to partake in his care Coding Level of Care Code Est Pt Level 4 (81044) Diagnoses CAD (coronary artery disease) I25.10 Persistent atrial fibrillation I48.19 Thoracic aortic aneurysm I71.20 CPT Codes EKG - CPT: 53447-[id number], Complete ([id number])
== END 2023-11-20 14:00 | disposition home or self-care (01) ==
PROVIDERS: Visit Provider Internal Medicine Cardiovascular Disease
DX: I25.10 Atherosclerotic heart disease of native coronary artery without angina pectoris (principal); I48.19 Other persistent atrial fibrillation; I71.20 Thoracic aortic aneurysm, without rupture, unspecified
CPT/HCPCS: 93010; 99214

== ENCOUNTER → 2023-11-20 13:24 | Outpatient (BNVA) | payer SELFPAY | PROVIDERS: Visit Provider Internal Medicine Cardiovascular Disease | DX: I25.10 Atherosclerotic heart disease of native coronary artery without angina pectoris (principal); I48.19 Other persistent atrial fibrillation; I71.20 Thoracic aortic aneurysm, without rupture, unspecified; Z79.01 Long term (current) use of anticoagulants | CPT/HCPCS: 93005 ==

== ENCOUNTER 2024-02-05 09:35 | Outpatient (AMB) | payer BC, SELFPAY ==
--- NOTE | 2024-02-05 09:40 | MHC.PC.OV ---
Vital Signs 02/05/24 09:43 Height 6 ft Weight 199 lb BMI 27.0 BP 110/66 Blood Pressure Location Lt brachial Position Sitting Pulse 96 Pulse Source Pulse Oximeter Pulse Oximetry (%) 98 Oxygen Delivery Method Room Air Intake Visit Reasons: PE Intake Note: Pt is here for annual PE. Allergies No Known Allergies Allergy (Verified 02/11/24 01:36) Medication List - Last Reconciled 02/05/24 by Krupa Vail MD apixaban 5 mg PO BID atenolol 100 mg PO DAILY atenolol 50 mg PO DAILY atorvastatin 80 mg PO DAILY cilostazol 100 mg PO BID isosorbide mononitrate ER 30 mg PO DAILY potassium chloride ER 10 mEq PO DAILY tamsulosin 0.4 mg PO DAILY Tobacco use date assessed: 02/05/24 Fall risk assessment: No Falls in past year Last assessed Fall Risk: 02/05/24 Dental Screening Dental Screen Date: 02/05/24 Did you have a dental visit in the last 12 months?: Yes Did you have a dental problem in the last 6 months where you did not have access to dental care?: No Was dental information given to patient?: Patient has dentist HPI PE HPI Details 78 year-old male with history of thoracic aortic aneurysm, benign prostatic hyperplasia, persistent atrial fibrillation currently on apixaban, has peripheral vascular disease and hypertension, here today for his physical exam . He states that he has been feeling well, with no new complaints at present time. Continues to smoke 1 pack a day with no desire to quit. currently followed at [facility] vascular surgery . Has no new complaints at present time. [facility] Medical History Elevated PSA, less than 10 ng/ml Peripheral arterial disease with history of revascularization Heel pain, bilateral Smokes one pack per day or less and unmotivated to quit Persistent atrial fibrillation HTN (hypertension) Hyperlipidemia CAD (coronary artery disease) PVD (peripheral vascular disease) Surgical History History of repair of aneurysm of abdominal aorta using endovascular stent graft Hx of aorto-femoral bypass Hx of heart bypass surgery Hx of colonoscopy Hx of basal cell carcinoma excision Family History Father No problems noted. Mother No problems noted. Family/Other AAA (abdominal aortic aneurysm) CVD (cardiovascular disease) Cancer Social History Housing: House Patient Tobacco Use Status: Current everyday Tobacco user Cigarette Packs Per Day: 1 Cigarettes Per Day: 20 e-Cigarette/Vaping Use: Never Used service: No Current occupational status: employed Cognitive needs: No Hearing needs: No Vision needs: No Questionnaire PHQ-9 Over the last 2 weeks, how often have you been bothered by any of the following problems? 1. Little interest or pleasure in doing things: not at all 2. Feeling down, depressed, or hopeless: not at all 3. Trouble falling or staying asleep, or sleeping too much: not at all 4. Feeling tired or having little energy: not at all 5. Poor appetite or overeating: not at all 6. Feeling bad about yourself - or that you are a failure or have let yourself or your family down: not at all 7. Trouble concentrating on things, such as reading the newspaper or watching television: not at all 8. Moving or speaking so slowly that other people could have noticed. Or the opposite - being so fidgety or restless that you have been moving around a lot more than usual: not at all 9. Thoughts that you would be better off or of hurting yourself in some way: not at all Total score: 0 Depression Screening Interpretation: Negative Depression Screening Done: Yes 11724 - PHQ-9 Billing: Yes Source: Developed by Drs. Alonso Dave, Juanita Gtz, Satish Alonso and colleagues, with an educational donald from [employer]. Thrive Questionnaire Date Thrive assessed: 02/05/24 I am a: Patient What is your living situation today?: I have a steady place to live Within the past 12 months, did the food you bought not last and you didn't have the money to get more?: I choose not to answer this question Within the past 12 months, did you worry whether your food would run out before you got money to buy more?: I choose not to answer this question Do you have trouble paying for medicines?: No Do you have trouble getting transportation to medical appointments?: No Do you have trouble paying your heating and electricity bill?: No Do you have trouble taking care of your child, family member or friend?: No Do you have trouble with day-to-day activities such as bathing, preparing meals, shopping, managing finances, etc.?: No Are you currently unemployed and looking for a job?: No Are you interested in more education?: No Please select the resources that you would like help with: Housing/Long Term Currently or been in a relationship where the following occur: I choose not to answer THRIVE Score: 0 AUDIT C Alcohol Use Questionnaire (AUDIT-C) 1. How often do you have a drink containing alcohol?: Never Total Score: 0 ARTUR-7 AMB Questionnaire ARTUR-7 Date ARTUR - 7 assessed: 02/05/24 Feeling nervous, anxious, or on edge: 0 = Not at all Not being able to stop or control worryin = Not at all Worrying too much about different things: 0 = Not at all Trouble relaxin = Not at all Being so restless that it is hard to sit still: 0 = Not at all Becoming easily annoyed or irritable: 0 = Not at all Feeling afraid as if something awful might happen: 0 = Not at all Total ARTUR-7 score (0-4 normal; 5-9 mild; 10-14 moderate; 15-21 severe): 0 Source: Developed by Drs. Alonso Dave, Juanita Gtz, Satish Alonso and colleagues, with an educational donald from [employer] ARTUR-7 Assessment Billing ARTUR-7 Assessment Tool: ARTUR-7 Assessment 92863 Review of Systems Const Denies fatigue, Denies fever(s), Denies frequent falls, Denies headache(s) and Denies weakness Eyes Reports blurry vision ENT Denies dizziness, Denies headache(s), Denies hoarseness, Denies nasal congestion and Denies post nasal drip Card Denies chest pain, Denies leg edema, Denies lightheadedness, Denies palpitations, Denies dyspnea, Denies dyspnea on exertion, Denies orthopnea and Denies other (loss of consciousness) Resp Denies cough, Denies dyspnea and Denies dyspnea on exertion GI Denies abdominal pain, Denies melena, Denies hematochezia, Denies change in bowel habits, Denies change in stool character and Denies heartburn Reports no additional complaints Musc Denies abnormal gait, Denies muscle weakness, Denies numbness and Denies radiating pain into limb Skin/Breast Denies rash, Denies sores and Denies unusual bruising Neuro Denies abnormal gait, Denies dizziness, Denies frequent falls, Denies headache(s), Denies numbness and Denies weakness Psych Reports no additional complaints Endo Denies fatigue and Denies palpitations Remigio/Lymph Reports easy bruising Aller/Immun Reports no additional complaints Physical exam (Primary Care) Vital Signs: Last Vital Signs Pulse 96 02/05/24 09:43 BP 110/66 02/05/24 09:43 Pulse Ox 98 02/05/24 09:43 Oxygen Delivery Method Room Air 02/05/24 09:43 BMI result Body Mass Index 27.0 Tobacco/Smoking Status: Tobacco use Status Tobacco use date assessed 02/05/24 02/05/24 09:43 Patient Tobacco Use Status Current everyday Tobacco 02/05/24 09:40 e-Cigarette/Vaping Use Never Used 02/05/24 09:40 PHQ-9: PHQ-9 Score PHQ-9: Total score 0 02/05/24 10:33 Depression Screening Interpretation: Negative Thrive Assessment: Date of Thrive Assessment Date Thrive assessed 02/05/24 02/05/24 09:43 Currently or been in a relationship where the following occur: I choose not to answer Const Other: Alert oriented x3, no acute distress noted ambulatory with normal gait HENMT Head: Yes normocephalic Ears: EAC's normal and hearing grossly impaired General nose exam: No nasal discharge present Face and sinus: Yes face symmetric Mouth: oropharynx normal and moist mucous membranes Eyes General: appearance normal, both eyes and all related structures Neck Neck: Yes full ROM, Yes no lymphadenopathy, Yes supple and No anterior neck swelling Thyroid: Thyroid normal Chest Chest palpation & inspection: normal inspection of the chest Resp Effort & Inspection: normal respiratory effort and able to speak in complete sentences Auscultation: clear to auscultation bilaterally Cardio Rhythm: abnormal rhythm irregularly irregular GI Inspection: Yes normal to inspection Palpation (GI): Soft to palpation, nontender, no guarding and no masses Auscultation: normal bowel sounds General: Yes no CVA tenderness Back/Spine/Pelvis Back: no CVA tenderness and No back tenderness Skin Other: Dry skin all throughout, no rashes Neuro General: gait normal, moves all extremities, Normal light touch and pain sensation, no focal motor deficits and CN's II-XI intact bilaterally Extrem Other: Decreased pedal pulses bilaterally General: Yes full ROM, Yes no joint enlargement, Yes no clubbing, cyanosis or edema, Yes no pedal edema, Yes no calf tenderness and Yes normal gait Psych Appearance: grossly normal and well kempt Mental Status: mental status grossly normal Speech and movement: Normal speech and movement present Affect: normal affect Thought process: Normal thought process present Thought content: Normal thought content present Assessment and Plan Assessment & Plan (1) Annual visit for general adult medical examination with abnormal findings: Code(s): Z00.01 - Encounter for general adult medical examination with abnormal findings Plan: Will check appropriate labs. Recommended dental visit every 6 months and regular eye exams, at least every 2 years. Take adequate calcium in diet and vitamin-D 3 at 2000 IU per cap once a day, in addition to weight-bearing exercises to help maintain good muscle tone and weight control. Instructed to do testicular exam check for any mass. Up-to-date with all his vaccinations, reminded to get yearly flu shots (2) CAD (coronary artery disease): Code(s): I25.10 - Atherosclerotic heart disease of [place] coronary artery without angina pectoris Qualifiers: Coronary Disease-Associated Artery/Lesion type: [place] artery [place] vs. transplanted heart: [place] heart Associated angina: without angina Qualified Code(s): I25.10 - Atherosclerotic heart disease of [place] coronary artery without angina pectoris Plan: Followed by cardiology, currently on isosorbide mononitrate ER, atorvastatin, atenolol (3) HTN (hypertension): Code(s): I10 - Essential (primary) hypertension Qualifiers: Hypertension type: primary hypertension Qualified Code(s): I10 - Essential (primary) hypertension Plan: Blood pressure at goal of less than 130/80. Continue with current medication. Reinforced importance of following a low sodium diet, getting regular exercise, and lowering stress levels. (4) Persistent atrial fibrillation: Code(s): I48.19 - Other persistent atrial fibrillation Plan: Currently on apixaban 5 mg 1 tablet twice a day (5) Benign prostate hyperplasia: Code(s): N40.0 - Benign prostatic hyperplasia without lower urinary tract symptoms Plan: Followed by Urology currently on tamsulosin 0.4 mg daily and finasteride 5 mg once a day (6) Thoracic aortic aneurysm: Code(s): I71.20 - Thoracic aortic aneurysm, without rupture, unspecified Qualifiers: Thoracic aorta location: unspecified Presence of rupture: without rupture Qualified Code(s): I71.20 - Thoracic aortic aneurysm, without rupture, unspecified Plan: Followed by vascular surgery (7) Peripheral arterial disease with history of revascularization: Code(s): I73.9 - Peripheral vascular disease, unspecified; Z98.890 - Other specified postprocedural states Plan: Followed by vascular clinic at [facility], on cilostazol 100 mg 1 tablet twice a day Orders: Orders PSA,Total (Free>4and<10) 02/05/24 I10 - Essential (primary) hypertension, I25.10 - Atherosclerotic heart disease of [place] coronary artery without angina pectoris, I48.19 - Other persistent atrial fibrillation, I71.20 - Thoracic aortic aneurysm, without rupture, unspecified, I73.9 - Peripheral vascular disease, unspecified, N40.0 - Benign prostatic hyperplasia without lower urinary tract symptoms, Z98.890 - Other specified postprocedural states Vitamin D 25-OH Total 02/05/24 I10 - Essential (primary) hypertension, I25.10 - Atherosclerotic heart disease of [place] coronary artery without angina pectoris, I48.19 - Other persistent atrial fibrillation, I71.20 - Thoracic aortic aneurysm, without rupture, unspecified, I73.9 - Peripheral vascular disease, unspecified, N40.0 - Benign prostatic hyperplasia without lower urinary tract symptoms, Z98.890 - Other specified postprocedural states Complete Blood Count Auto Diff 02/05/24 I10 - Essential (primary) hypertension, I25.10 - Atherosclerotic heart disease of [place] coronary artery without angina pectoris, I48.19 - Other persistent atrial fibrillation, I71.20 - Thoracic aortic aneurysm, without rupture, unspecified, I73.9 - Peripheral vascular disease, unspecified, N40.0 - Benign prostatic hyperplasia without lower urinary tract symptoms, Z98.890 - Other specified postprocedural states Alanine Aminotransferase 02/05/24 I10 - Essential (primary) hypertension, I25.10 - Atherosclerotic heart disease of [place] coronary artery without angina pectoris, I48.19 - Other persistent atrial fibrillation, I71.20 - Thoracic aortic aneurysm, without rupture, unspecified, I73.9 - Peripheral vascular disease, unspecified, N40.0 - Benign prostatic hyperplasia without lower urinary tract symptoms, Z98.890 - Other specified postprocedural states Aspartate Amino Transferase 02/05/24 I10 - Essential (primary) hypertension, I25.10 - Atherosclerotic heart disease of [place] coronary artery without angina pectoris, I48.19 - Other persistent atrial fibrillation, I71.20 - Thoracic aortic aneurysm, without rupture, unspecified, I73.9 - Peripheral vascular disease, unspecified, N40.0 - Benign prostatic hyperplasia without lower urinary tract symptoms, Z98.890 - Other specified postprocedural states Basic Metabolic Panel Fasting 02/05/24 I10 - Essential (primary) hypertension, I25.10 - Atherosclerotic heart disease of [place] coronary artery without angina pectoris, I48.19 - Other persistent atrial fibrillation, I71.20 - Thoracic aortic aneurysm, without rupture, unspecified, I73.9 - Peripheral vascular disease, unspecified, N40.0 - Benign prostatic hyperplasia without lower urinary tract symptoms, Z98.890 - Other specified postprocedural states Lipid Panel 02/05/24 I10 - Essential (primary) hypertension, I25.10 - Atherosclerotic heart disease of [place] coronary artery without angina pectoris, I48.19 - Other persistent atrial fibrillation, I71.20 - Thoracic aortic aneurysm, without rupture, unspecified, I73.9 - Peripheral vascular disease, unspecified, N40.0 - Benign prostatic hyperplasia without lower urinary tract symptoms, Z98.890 - Other specified postprocedural states Coding Level of Care Code Est Pt [facility] Care >65y(65924) Diagnoses Annual visit for general adult medical examination with abnormal findings Z00.01 Coronary artery disease involving [place] coronary artery of [place] heart without angina pectoris I25.10 Coronary Disease-Associated Artery/Lesion type: [place] artery [place] vs. transplanted heart: [place] heart Associated angina: without angina Primary hypertension I10 Hypertension type: primary hypertension Persistent atrial fibrillation I48.19 Benign prostate hyperplasia N40.0 Thoracic aortic aneurysm without rupture, unspecified part I71.20 Thoracic aorta location: unspecified Presence of rupture: without rupture Peripheral arterial disease with history of revascularization I73.9; Z98.890 Additional Codes ARTUR-7 Assessment Billing - ARTUR-7 Assessment Tool: ARTUR-7 Assessment 82309 ([id number])
[2024-02-05 09:43] VITALS: BP 110/66; PULSE 96; O2SAT 98; BMI 27.0
== END 2024-02-05 11:30 | disposition home or self-care (01) ==
PROVIDERS: PCP Internal Medicine; Visit Provider Internal Medicine
DX: Z00.00 Encounter for general adult medical examination without abnormal findings (principal); I48.19 Other persistent atrial fibrillation; I73.9 Peripheral vascular disease, unspecified; I71.20 Thoracic aortic aneurysm, without rupture, unspecified; I25.10 Atherosclerotic heart disease of native coronary artery without angina pectoris; I10 Essential (primary) hypertension; N40.0 Benign prostatic hyperplasia without lower urinary tract symptoms; Z98.890 Other specified postprocedural states
CPT/HCPCS: 99397

== ENCOUNTER 2024-02-05 10:25 | Outpatient (REF) | payer BC, SELFPAY ==
[2024-02-05 12:59] LABS: MANUAL DIFF FLAG NO
[2024-02-05 13:10] LABS: Basophils Absolute Auto 0.1 X10*3/uL (0.0-0.2); Basophils Percent Auto 1.1 % (0-2); Eosinophils Absolute Auto 0.1 X10*3/uL (0.0-0.4); Hematocrit 45.6 % (42.0-52.0); Hemoglobin 15.3 g/dl (14.0-18.0); Imm Gran Abs Auto 0.08 X10*3/uL (0.00-0.03); Lymphocytes Absolute Auto 1.9 X10*3/uL (1.2-4.9); Lymphocytes Percent Auto 22.4 % (20-40); Mean Corpuscular HGB Conc 33.6 g/dl (31.0-36.0); Mean Corpuscular Hemoglobin 32.8 pg (27.0-33.0); Mean Corpuscular Volume 97.9 fL (80.0-98.0); Mean Platelet Volume 12.2 fL (9.4-12.4); Monocytes Absolute Auto 0.8 X10*3/uL (0.1-1.2); Monocytes Percent Auto 9.7 % (2-11); Neutrophils Absolute Auto 5.4 x10*3/uL (2.0-8.3); Neutrophils Percent Auto 64.8 % (45-73); Platelet Count 169 X10*3/uL (160-400); Red Blood Count 4.66 X10*6/uL (4.60-5.80); Red Cell Distribution Width 12.5 % (11.0-16.0); White Blood Count 8.3 X10*3/uL (4.8-10.8)
[2024-02-05 13:34] LABS: Alanine Aminotransferase 12 U/L (0-40); Anion Gap 13 (12-20); Aspartate Amino Transferase 16 U/L (5-37); Blood Urea Nitrogen 15 mg/dL (9-16); Calcium 9.3 mg/dL (8.4-10.2); Carbon Dioxide 28 mmol/L (22-29); Chloride 103 mmol/L (96-108); Cholesterol 108 mg/dL (<200); Estimated Glomerular Filt Rate > 60; Glucose Fasting 99 mg/dL (60-99); HDL Cholesterol 33 mg/dL (>40); LDL Cholesterol Calculated 63 mg/dL (<100); Sodium 140 mmol/L (135-145); Triglycerides 60 mg/dL (<150)
[2024-02-05 13:39] LABS: Vitamin D 25-OH Total 17.5 ng/mL (>30)
[2024-02-05 13:48] LABS: PSA,Total (Free>4and<10) 6.39 ng/mL (0.00-4.00)
[2024-02-07 11:58] LABS: Free Prostate Spec Ag 0.7 ng/mL; Percent Free Prostate Spec Ag 11 % (calc) (>25); Prostate Specific Ag Total 6.5 ng/mL (< OR = 4.0)
== END 2024-02-05 10:26 | disposition home or self-care (01) ==
LOC: HO.HMGCLDS 10:25
PROVIDERS: PCP Internal Medicine; Visit Provider Internal Medicine
DX: I71.20 Thoracic aortic aneurysm, without rupture, unspecified (principal); N40.0 Benign prostatic hyperplasia without lower urinary tract symptoms; I48.19 Other persistent atrial fibrillation; I10 Essential (primary) hypertension; I25.10 Atherosclerotic heart disease of native coronary artery without angina pectoris; I73.9 Peripheral vascular disease, unspecified; Z98.890 Other specified postprocedural states; Z12.5 Encounter for screening for malignant neoplasm of prostate
CPT/HCPCS: 36415; 80048; 80061; 82306; 84153; 84154; 84450; 84460; 85025

== ENCOUNTER 2024-02-08 09:38 | Outpatient (AMB) | payer BC, SELFPAY ==
--- NOTE | 2024-02-08 09:39 | MHC.OFFVIS ---
Intake Visit Reasons: BPH without LUTS/ elevated PSA Intake Note: Patient is present for BPH without LUTS/elevated PSA Urology Medication: Antibiotic Allergy:TAMSULOSIN Blood Thinner: NONE TODAY'S PVR: 0ML'S Video Producer Required: No Allergies No Known Allergies Allergy (Verified 02/08/24 10:09) Medication List - Last Reconciled 02/08/24 by Claudette Pink MD apixaban 5 mg PO BID atenolol 100 mg PO DAILY atenolol 50 mg PO DAILY atorvastatin 80 mg PO DAILY cholecalciferol (vitamin D3) 1,250 mcg PO QWEEK 3 months cilostazol 100 mg PO BID finasteride (Proscar) 5 mg PO DAILY 90 days isosorbide mononitrate ER 30 mg PO DAILY potassium chloride ER 10 mEq PO DAILY tamsulosin 0.4 mg PO DAILY HPI Comments Details: Gustavo is a 78 year old male who is here for evaluation for elevated PSA. PMH significant CAD, PVD on eliquis. Comorbidity Nicotine dependency. He states he smokes about a pack a day. He is on tamsulosin, he states that if he forgets to take this medication he does notice it change in his urination otherwise he has no complaints regarding urination. He denies dysuria or gross hematuria. I have discussed PSA is a blood test, prostate specific antigen and is an enzyme secreted by the prostate gland. Elevated PSA may be due to multiple conditions including prostate inflammatory condition, enlarged prostate or prostate cancer. Prostate exam - no suspicious nodules palpated, irregular left > right. Discussed course of Proscar 5 mg daily. Repeat PSA in 4 months. PSA - 02/05/24--6.39 PSA --10/12/22--5.3 PSA--04/11/22--3.96 [facility] Medical History Elevated PSA, less than 10 ng/ml Peripheral arterial disease with history of revascularization Heel pain, bilateral Smokes one pack per day or less and unmotivated to quit Persistent atrial fibrillation HTN (hypertension) Hyperlipidemia CAD (coronary artery disease) PVD (peripheral vascular disease) Surgical History History of repair of aneurysm of abdominal aorta using endovascular stent graft Hx of aorto-femoral bypass Hx of heart bypass surgery Hx of colonoscopy Hx of basal cell carcinoma excision Family History Father No problems noted. Mother No problems noted. Family/Other AAA (abdominal aortic aneurysm) CVD (cardiovascular disease) Cancer Social History Housing: House Patient Tobacco Use Status: Current everyday Tobacco user Cigarette Packs Per Day: 1 Cigarettes Per Day: 20 e-Cigarette/Vaping Use: Never Used service: No Current occupational status: employed Cognitive needs: No Hearing needs: No Vision needs: No Review of Systems Const All systems reviewed & are unremarkable except as noted in HPI and below Reports no additional complaints Eyes Reports no additional complaints ENT Reports no additional complaints Card Reports no additional complaints Resp Reports no additional complaints GI Reports no additional complaints Reports as per HPI Musc Reports no additional complaints Skin/Breast Reports system reviewed and no additional complaints, except as documented Neuro Reports no additional complaints Psych Reports no additional complaints Endo Reports no additional complaints Remigio/Lymph Reports no additional complaints Aller/Immun Reports no additional complaints Physical Exam Const General: no acute distress and well developed Orientation/consciousness: patient oriented x3 HEENT Head: Yes normocephalic and Yes atraumatic Eyes Conjunctivae: conjunctivae normal Neck Neck: Yes normal visual inspection Chest Chest palpation & inspection: normal inspection of the chest Resp Effort & Inspection: normal respiratory effort Cardio Rate: regular rate GI Inspection: Yes normal to inspection Palpation (GI): Soft to palpation Other: Prostate Exam: Skin General skin exam: no rashes or lesions noted Neuro General: patient oriented x3 Psych Appearance: grossly normal Affect: normal affect Office Procedures Post Void Residual Post Residual Void Post Void Residual (PVR): 0 [id number] Void Residual by ultrasound Assessment & Plan Assessment & Plan (1) Elevated PSA, less than 10 ng/ml: Code(s): R97.20 - Elevated prostate specific antigen [PSA] Category: Medical (2) BPH with elevated PSA: Code(s): N40.0 - Benign prostatic hyperplasia without lower urinary tract symptoms; R97.20 - Elevated prostate specific antigen [PSA] Category: Medical (3) BPH loc w urin obs/LUTS: Code(s): N40.1 - Benign prostatic hyperplasia with lower urinary tract symptoms Category: Medical Plan Elevated PSA. Discussed course of Proscar 5 mg daily. Repeat PSA in 4 months. Orders: Orders UA w Microscopic Today N40.1 - Benign prostatic hyperplasia with lower urinary tract symptoms PSA,Total (Free>4and<10) 4 Months N40.0 - Benign prostatic hyperplasia without lower urinary tract symptoms, R97.20 - Elevated prostate specific antigen [PSA] US retroperitoneal comp 3 Months N40.0 - Benign prostatic hyperplasia without lower urinary tract symptoms, R97.20 - Elevated prostate specific antigen [PSA] Medications: New finasteride (Proscar) 5 mg PO DAILY 90 days 90 tabs 3RF Patient Instructions: The patient had an opportunity to ask questions regarding treatment plan. The patient expressed understanding and agreement with the above treatment plan. The patient is aware they should contact our office by phone for worsening of their current condition or the appearance of new symptoms. Compliance is encouraged with any medications and followup testing that is ordered. It is a privilege to be allowed the opportunity to participate in the urologic care of your patient. If you have any questions or concerns regarding treatment for the above conditions please do not hesitate to contact me. The office telephone contact is [phone]. This note is constructed in part using voice recognition software. While every effort has been made to ensure accuracy fire department marine engineer errors may have been included. Yours sincerely, Claudette Pink MD Coding Level of Care Code New Pt Level 4 (48806) Diagnoses Elevated PSA, less than 10 ng/ml R97.20 BPH with elevated PSA N40.0; R97.20 BPH loc w urin obs/LUTS N40.1 CPT Codes Post Residual Void - PVR CPT Code: 16964-Ccap Void Residual by ultrasound ([id number])
== END 2024-02-08 10:47 | disposition home or self-care (01) ==
PROVIDERS: PCP Internal Medicine; Visit Provider Urology
DX: R97.20 Elevated prostate specific antigen [PSA] (principal); N40.0 Benign prostatic hyperplasia without lower urinary tract symptoms; N40.1 Benign prostatic hyperplasia with lower urinary tract symptoms
CPT/HCPCS: 99204

== ENCOUNTER → 2024-02-08 09:38 | Outpatient (BNVA) | payer BC, SELFPAY | PROVIDERS: PCP Internal Medicine; Visit Provider Urology | DX: R97.20 Elevated prostate specific antigen [PSA] (principal); N40.1 Benign prostatic hyperplasia with lower urinary tract symptoms; N13.8 Other obstructive and reflux uropathy | CPT/HCPCS: 51798 ==

== ENCOUNTER 2024-02-11 09:15 | Outpatient (REF) | payer BC, SELFPAY ==
[2024-02-11 09:19] LABS: Appearance Urine Clear; Color Urine Yellow; Glucose Urine UA Negative (Negative); Leukocyte Esterase Urine Negative (Negative); Nitrite Urine Negative (Negative); PH 5.5 (5.0-9.0); Specific Gravity - Urine 1.015 (1.005-1.025); Urine Blood Negative (Negative); Urine Ketones Negative (Negative); Urine Protein Negative (Neg-Trace)
[2024-02-11 09:24] LABS: Bacteria Urine None Seen (None Seen); Hyaline Casts Urine 0-2 /LPF (0-2); RBC Urine 0-2 /HPF (0-2); Squamous Epithelial Cell Urine 0-2 /HPF (0-2); WBC Urine 0-5 /HPF (0-5)
== END 2024-02-11 09:16 | disposition home or self-care (01) ==
LOC: HO.LNP 09:15
PROVIDERS: Visit Provider Urology
DX: N40.1 Benign prostatic hyperplasia with lower urinary tract symptoms (principal)
CPT/HCPCS: 81001

== ENCOUNTER 2024-05-12 13:03 | Outpatient (REF) | payer BC, SELFPAY | END 2024-05-12 13:04 | disposition home or self-care (01) | LOC: HO.US 13:03 | PROVIDERS: PCP Internal Medicine; Visit Provider Urology | DX: N40.0 Benign prostatic hyperplasia without lower urinary tract symptoms (principal); R97.20 Elevated prostate specific antigen [PSA] | CPT/HCPCS: 76770 ==

== ENCOUNTER 2024-07-10 10:34 | Outpatient (REF) | payer BC, SELFPAY | END 2024-07-10 10:35 | disposition home or self-care (01) | LOC: HO.10HDL 10:34 | PROVIDERS: Visit Provider Urology | DX: Z12.5 Encounter for screening for malignant neoplasm of prostate (principal); N20.0 Calculus of kidney; R97.20 Elevated prostate specific antigen [PSA] | CPT/HCPCS: 36415; 84153 ==

== ENCOUNTER 2024-07-14 13:40 | Outpatient (AMB) | payer BC, SELFPAY ==
--- NOTE | 2024-07-14 14:41 | AM.OFFWIN_ITS ---
Intake Vital Signs 07/14/24 14:55 Height 6 ft Weight 208 lb BMI 28.2 BP 124/70 Blood Pressure Location Lt brachial Position Sitting Pulse 71 Pulse Source Pulse Oximeter Pulse Oximetry (%) 95 Oxygen Delivery Method Room Air Intake Visit Reasons: EP foot pain Intake Note: Patient here for right foot pain that has been going on for some time now Patient Tobacco Use Status: Current everyday Tobacco user Allergies No Known Allergies Allergy (Verified 07/14/24 14:56) Do you need a note to return to daycare/school/sports/work: No HPI HPI Comments History of Present Illness Details History of Present Illness The patient is a 78-year-old male presenting with the request for a podiatry referral. He has a history of peripheral circulatory disorder affecting his feet, which has been managed with care from [facility] and [facility], including interventions by mottle lay up operator Bren Johnson. In 2021, Dr. Johnson performed a tendon release procedure to address toe deformity, which successfully alleviated corns and pain, significantly improving ambulation. However, he reports continued issues with circulation in the feet and occasional formation of ulcers at the toe tips. He seeks re-evaluation by podiatry to ensure the condition of his tendons and circulation remains stable. The patient denies current pain but requires monitoring of his condition. Physical Exam General: Cooperative, healthy appearing, comfortable, no acute distress and well developed Orientation: Patient oriented x3 Limitations: No limitations Head: Normal to inspection Ears: Hearing grossly normal bilaterally Nose: Normal Nxternal nose present Face and sinus: ormal facial exam Eyes: Appearance normal, both eyes and all related structures Neck: Normal visual inspection and Yes full ROM Respiratory: Normal respiratory effort and able to speak in complete sentences. Skin: No rashes or lesions noted Neuro: Patient oriented x3 Extremities: small Ulcer noted at the tip of the third toe, no signs of infection or acute issues observed, Toes [facility] Medical History Elevated PSA, less than 10 ng/ml Peripheral arterial disease with history of revascularization Heel pain, bilateral Smokes one pack per day or less and unmotivated to quit Persistent atrial fibrillation HTN (hypertension) Hyperlipidemia CAD (coronary artery disease) PVD (peripheral vascular disease) Surgical History History of repair of aneurysm of abdominal aorta using endovascular stent graft Hx of aorto-femoral bypass Hx of heart bypass surgery Hx of colonoscopy Hx of basal cell carcinoma excision Family History Father No problems noted. Mother No problems noted. Family/Other AAA (abdominal aortic aneurysm) CVD (cardiovascular disease) Cancer Social History Housing: House Patient Tobacco Use Status: Current everyday Tobacco user Cigarette Packs Per Day: 1 Cigarettes Per Day: 20 e-Cigarette/Vaping Use: Never Used service: No Current occupational status: employed Cognitive needs: No Hearing needs: No Vision needs: No Review of Systems Const All systems reviewed & are unremarkable except as noted in HPI and below Physical Exam Vital Signs: Last Vital Signs Pulse 71 07/14/24 14:55 BP 124/70 07/14/24 14:55 Pulse Ox 95 07/14/24 14:55 Oxygen Delivery Method Room Air 07/14/24 14:55 BMI result Body Mass Index 28.2 Assessment & Plan Assessment & Plan (1) Chronic pain of toe of right foot: Code(s): M79.674 - Pain in right toe(s); G89.29 - Other chronic pain Plan: Plan - Proceed with request for PCP to place referral to podiatry for comprehensive evaluation of tendons and circulatory assessment of toes of the right foot. - Further interventions or procedures to be directed following podiatric evaluation. Patient was informed and verbally consented to the use of an ambient scribe for clinic note documentation during this visit. Coding Level of Care Code Est Pt Level 3 (63118) Diagnoses Chronic pain of toe of right foot M79.674; G89.29
[2024-07-14 14:55] VITALS: BP 124/70; PULSE 71; O2SAT 95; BMI 28.2
== END 2024-07-14 15:27 | disposition home or self-care (01) ==
PROVIDERS: PCP Internal Medicine; Visit Provider Physician Assistant
DX: M79.674 Pain in right toe(s) (principal); G89.29 Other chronic pain

== ENCOUNTER → 2024-07-14 13:40 | Outpatient (BNVA) | payer BC, SELFPAY | PROVIDERS: PCP Internal Medicine ==

== ENCOUNTER 2024-07-17 14:11 | Outpatient (AMB) | payer BC, SELFPAY ==
--- NOTE | 2024-07-17 14:14 | MHC.OFFVIS ---
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 He had been on tamsulosin and was started on Proscar 5 mg daily follow-up PSA on 06/1924 was discussed: 3.60 ng/mL. Also reviewed with the patient renal ultrasound 04/2024 is within normal limits. Will continue finasteride and tamsulosin. Monitor PSA follow-up in. Review of chart: 02/08/24--Gustavo is a 78 year old male who is here for evaluation for elevated PSA. PMH significant CAD, PVD on eliquis. Comorbidity Nicotine dependency. He states he smokes about a pack a day. He is on tamsulosin, he states that if he forgets to take this medication he does notice it change in his urination otherwise he has no complaints regarding urination. He denies dysuria or gross hematuria. I have discussed PSA is a blood test, prostate specific antigen and is an enzyme secreted by the prostate gland. Elevated PSA may be due to multiple conditions including prostate inflammatory condition, enlarged prostate or prostate cancer. Prostate exam - no suspicious nodules palpated, irregular left > right. Discussed course of Proscar 5 mg daily. Repeat PSA in 4 months. PSA - 02/05/24--6.39 PSA --10/12/22--5.3 PSA--04/11/22--3.96 [facility] Medical History Elevated PSA, less than 10 ng/ml Peripheral arterial disease with history of revascularization Heel pain, bilateral Smokes one pack per day or less and unmotivated to quit Persistent atrial fibrillation HTN (hypertension) Hyperlipidemia CAD (coronary artery disease) PVD (peripheral vascular disease) Surgical History History of repair of aneurysm of abdominal aorta using endovascular stent graft Hx of aorto-femoral bypass Hx of heart bypass surgery Hx of colonoscopy Hx of basal cell carcinoma excision Family History Father No problems noted. Mother No problems noted. Family/Other AAA (abdominal aortic aneurysm) CVD (cardiovascular disease) Cancer Social History Housing: House Patient Tobacco Use Status: Current everyday Tobacco user Cigarette Packs Per Day: 1 Cigarettes Per Day: 20 e-Cigarette/Vaping Use: Never Used service: No Current occupational status: employed Cognitive needs: No Hearing needs: No Vision needs: No Review of Systems Const All systems reviewed & are unremarkable except as noted in HPI and below Reports no additional complaints Eyes Reports no additional complaints ENT Reports no additional complaints Card Reports no additional complaints Resp Reports no additional complaints GI Reports no additional complaints Reports as per HPI Musc Reports no additional complaints Skin/Breast Reports system reviewed and no additional complaints, except as documented Neuro Reports no additional complaints Psych Reports no additional complaints Endo Reports no additional complaints Remigio/Lymph Reports no additional complaints Aller/Immun Reports no additional complaints Results AMB Urinalysis, Automated UA Leukoctes 0 Noe/uL Last Edit by Rosana Abrams CMA on 07/17/24 14:27 UA Nitrite Negative Last Edit by Rosana Abrams CMA on 07/17/24 14:27 UA Urobilinogen 0.2 mg/dL Last Edit by Rosana Abrams CMA on 07/17/24 14:27 UA Protein 15 mg/dL Last Edit by Rosana Abrams CMA on 07/17/24 14:27 UA pH 5.5 Last Edit by Rosana Abrams CMA on 07/17/24 14:27 UA Blood 10 Jonathan/uL Last Edit by Rosana Abrams CMA on 07/17/24 14:27 UA Specific Dana 1.030 Last Edit by Rosana Abrams CMA on 07/17/24 14:27 UA Ketone Negative Last Edit by Rosana Abrams CMA on 07/17/24 14:27 UA Bilirubin 0 mg/dL Last Edit by Rosana Abrams CMA on 07/17/24 14:27 UA Glucose 0 mg/dL Last Edit by Rosana Abrams CMA on 07/17/24 14:27 Results Reviewed Results Reviewed: Laboratory Last Values Urine pH (Auto) 5.5 07/17/24 14:17 Specific Dana (Auto) 1.030 07/17/24 14:17 Urine Protein (Auto) 15 mg/dL 07/17/24 14:17 Glucose (UA)(Auto) 0 mg/dL 07/17/24 14:17 Urine Ketones (Auto) Negative 07/17/24 14:17 Urine Blood (Auto) 10 Jonathan/uL 07/17/24 14:17 Urine Nitrite (Auto) Negative 07/17/24 14:17 Urine Bilirubin (Auto) 0 mg/dL 07/17/24 14:17 Urine Urobilinogen (Auto) 0.2 mg/dL 07/17/24 14:17 Leukocyte Esterase (Auto) 0 Noe/uL 07/17/24 14:17 Date of Service: 05/12/24 US RETROPERITONEAL COMPLETE (RENAL) CLINICAL INFORMATION: Benign prostatic hyperplasia without lower urinary tract symptoms. COMPARISON: CTA of the abdomen, pelvis and lower extremity runoff with contrast 04/12/2017. TECHNIQUE: Real-time imaging of the kidneys and bladder. Limited visualization due to bowel gas. FINDINGS: RIGHT KIDNEY: 10.3 x 4.8 x 5.6 cm (SAG x AP x TRV). No hydronephrosis. No renal calculi. Renal cortical thickness is normal. Limited visualization. LEFT KIDNEY: 12.5 x 5.4 x 5.3 cm (SAG x AP x TRV). No hydronephrosis. No renal calculi. Renal cortical thickness is normal. Limited visualization. BLADDER: Moderately distended Bilateral ureteral jets are demonstrated. Prevoid bladder volume is 150 mL. Postvoid bladder volume is 92.6 mL. PROSTATE GLAND: The prostate gland is enlarged with a volume of 37.1 mL. IMPRESSION: 1. No hydronephrosis. No renal calculi. Limited visualization. 2. Prevoid bladder volume is 150 mL. Postvoid bladder volume is 92.6 mL. 3. The prostate gland is enlarged with a volume of 37.1 mL. Assessment & Plan Assessment & Plan (1) BPH with elevated PSA: Code(s): N40.0 - Benign prostatic hyperplasia without lower urinary tract symptoms; R97.20 - Elevated prostate specific antigen [PSA] Category: Medical Plan Continue finasteride daily, tamsulosin at bedtime. Will continue to monitor PSA follow-up in 6 months. Orders: Orders AMB Urinalysis Automated Today Z13.9 - Encounter for screening, unspecified PSA,Total (Free>4and<10) 5 Months N40.0 - Benign prostatic hyperplasia without lower urinary tract symptoms, R97.20 - Elevated prostate specific antigen [PSA] Medications: Changed From tamsulosin 0.4 mg PO DAILY 90 caps 1RF N40.0 - Benign prostatic hyperplasia without lower urinary tract symptoms To tamsulosin 0.4 mg PO BEDTIME 90 caps 3RF N40.0 - Benign prostatic hyperplasia without lower urinary tract symptoms Refilled finasteride (Proscar) 5 mg PO DAILY 90 days 90 tabs 3RF Patient Instructions: The patient had an opportunity to ask questions regarding treatment plan. The patient expressed understanding and agreement with the above treatment plan. The patient is aware they should contact our office by phone for worsening of their current condition or the appearance of new symptoms. Compliance is encouraged with any medications and followup testing that is ordered. It is a privilege to be allowed the opportunity to participate in the urologic care of your patient. If you have any questions or concerns regarding treatment for the above conditions please do not hesitate to contact me. The office telephone contact is [phone]. This note is constructed in part using voice recognition software. While every effort has been made to ensure accuracy assistant public defender errors may have been included. Yours sincerely, Claudette Pink MD Coding Level of Care Code Est Pt Level 3 (20006) Diagnoses BPH with elevated PSA N40.0; R97.20
== END 2024-07-17 14:51 | disposition home or self-care (01) ==
PROVIDERS: PCP Internal Medicine; Visit Provider Urology
DX: N40.0 Benign prostatic hyperplasia without lower urinary tract symptoms (principal); R97.20 Elevated prostate specific antigen [PSA]; Z13.9 Encounter for screening, unspecified
CPT/HCPCS: 99213

== ENCOUNTER → 2024-07-17 14:11 | Outpatient (BNVA) | payer BC, SELFPAY | PROVIDERS: PCP Internal Medicine; Visit Provider Urology | DX: R97.20 Elevated prostate specific antigen [PSA] (principal); N40.0 Benign prostatic hyperplasia without lower urinary tract symptoms | CPT/HCPCS: 81003 ==

== ENCOUNTER 2024-11-18 13:47 | Outpatient (AMB) | payer BC, SELFPAY ==
[2024-11-18 13:49] VITALS: BP 142/78; PULSE 75; BMI 28.1
--- NOTE | 2024-11-18 13:49 | A.OFFVIS_ITS ---
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 He denies any cardiac symptoms. Denies any prolonged palpitation irregular heartbeat. Denies any heart failure symptoms of orthopnea, PND. Has been in atrial swelling in the right lower extremity related to varicose veins. Has follows with vascular surgery. Denies any exertional chest pain. Unfortunately started smoking again. Takes all his medications. No bleeding issues or neurologic events. [facility] Medical History Elevated PSA, less than 10 ng/ml Peripheral arterial disease with history of revascularization Heel pain, bilateral Smokes one pack per day or less and unmotivated to quit Persistent atrial fibrillation HTN (hypertension) Hyperlipidemia CAD (coronary artery disease) PVD (peripheral vascular disease) Surgical History History of repair of aneurysm of abdominal aorta using endovascular stent graft Hx of aorto-femoral bypass Hx of heart bypass surgery Hx of colonoscopy Hx of basal cell carcinoma excision Family History Father No problems noted. Mother No problems noted. Family/Other AAA (abdominal aortic aneurysm) CVD (cardiovascular disease) Cancer Social History Housing: House Patient Tobacco Use Status: Current everyday Tobacco user Cigarette Packs Per Day: 1 Cigarettes Per Day: 20 e-Cigarette/Vaping Use: Never Used service: No Current occupational status: employed Cognitive needs: No Hearing needs: No Vision needs: No Review of Systems Const Denies chills, Denies fatigue, Denies fever(s), Denies frequent falls, Denies weakness, Denies weight gain and Denies weight loss ENT Denies dizziness Card Denies chest pain, Denies leg edema, Denies lightheadedness, Denies palpitations, Denies dyspnea, Denies dyspnea on exertion, Denies orthopnea and Denies other (loss of consciousness) Resp Denies cough, Denies dyspnea and Denies dyspnea on exertion GI Denies hematochezia and Denies change in stool character Musc Denies abnormal gait, Denies muscle weakness, Denies numbness, Denies radiating pain into limb and Denies tingling Neuro Denies abnormal gait, Denies dizziness, Denies frequent falls, Denies numbness, Denies tingling and Denies weakness Endo Denies fatigue and Denies palpitations Physical Exam Vital Signs: Last Vital Signs Pulse 75 11/18/24 13:49 BP 142/78 H 11/18/24 13:49 BMI result Body Mass Index 28.1 Const General: cooperative, comfortable, no acute distress, alert and awake Nutritional Appearance: overweight Orientation/consciousness: patient oriented x3 Limitations: no limitations Neck Neck: Yes trachea midline, Yes supple and Yes no JVD Chest Chest palpation & inspection: normal inspection of the chest Resp Effort & Inspection: normal respiratory effort Auscultation: clear to auscultation bilaterally and diminished lung sounds Cardio Jugular venous distension: no JVD Rhythm: abnormal rhythm irregularly irregular Heart sounds: S1 normal heart sound present and S2 normal heart sound present Peripheral pulses: posterior tibial pulses not present and dorsalis pedis pulses not present GI Auscultation: normal bowel sounds Neuro General: patient oriented x3 and no focal motor deficits Extrem General: No clubbing, No cyanosis and Yes edema (Right lower extremity) Psych Appearance: grossly normal Office Procedures EKG Details: EKG shows atrial fibrillation with T-wave changes in the inferior inferolateral leads suggestive of repolarization abnormality [id number], Complete Assessment & Plan Assessment & Plan (1) Persistent atrial fibrillation: Code(s): I48.19 - Other persistent atrial fibrillation Category: Medical Plan: Persistent chronic atrial fibrillation this elderly gentleman without any new signs or symptoms of heart failure. Continue with rate control approach with a atenolol therapy. Continue full oral anticoagulation, currently on Eliquis 5 mg b.i.d.. High risk for thromboembolic complication this was discussed with him. He understands and agrees. Given his longstanding atrial fibrillation lack of symptoms and biatrial enlargement unlikely to pursue rhythm control approach. (2) CAD (coronary artery disease): Code(s): I25.10 - Atherosclerotic heart disease of [place] coronary artery without angina pectoris Category: Medical Qualifiers: Coronary Disease-Associated Artery/Lesion type: [place] artery [place] vs. transplanted heart: [place] heart Associated angina: without angina Qualified Code(s): I25.10 - Atherosclerotic heart disease of [place] coronary artery without angina pectoris Plan: CAD with remote coronary artery bypass grafting as well as peripheral vascular disease. Remains high risk for recurrent vascular events given his continued use of smoking. This was discussed with him. He will try. Currently on full oral anticoagulation with apixaban and therefore would avoid antiplatelet therapy to reduce bleeding risk. Continue high-intensity statin therapy with target goal LDL less than 70 mg/dL. Continue aggressive blood pressure control which is currently well optimized. Will follow up in the clinic in 1 year's time, sooner p.r.n.. Thank you for allowing me to partake in his care Coding Level of Care Code Est Pt Level 4 (23818) Complex EM visit Add On G2211 Diagnoses Persistent atrial fibrillation I48.19 Coronary artery disease involving [place] coronary artery of [place] heart without angina pectoris I25.10 Coronary Disease-Associated Artery/Lesion type: [place] artery [place] vs. transplanted heart: [place] heart Associated angina: without angina CPT Codes EKG - CPT: 17224-[id number], Complete ([id number])
--- OUTSIDE RECORDS SUMMARY | 2024-11-18 15:56 | XMS_ITS ---
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 Name Role Phone Yared LECHUGA, Krupa Mackenzie Primary Care Provider Un available PallaviPetar lomaxen Unavailable [phone] Allergies No Known Allergies REASON FOR VISIT Painful Toe(s) Medications Medication SIG (Take, Route, Frequency, Duration) Notes Start Date End Date Status Atenolol 100 MG 1 tablet Orally Once a day for 30 day(s) Active Atorvastatin Calcium 80 MG 1 tablet Oral ly Once a day for 30 day(s) Active Apixaban 5 MG 1 tablet Orally Twic e a day Active Atenolol 50 MG 1 tablet Orally Once a day for 30 day(s) Active Cilostazol 100 MG 1 tablet 30 minutes before or 2 hours after breakfast and dinner Orally Twice a day for 30 day(s) Active Isosorbide Mononitrate ER 30 MG 1 tablet in the morning Orally Once a day for 30 day(s) Active Potassium Chloride ER 10 MEQ 1 tablet with food Orally Twice a day for 30 day(s) Active Tamsulosin HCl 0.4 MG 1 capsule Orally O nce a day for 30 day(s) Active Social History Tobacco Use: Social History Observation Description Date Details (start date - stop date) Current Smoker NA - NA Tobacco Use/Smoking Question Answer Notes Are you a: current smoker How often do you smoke cigarettes? every day How many cigarettes a day do you smoke? 11-20 Tobacco use other than smoking: Question Answer Notes Are you an other tobacco user? No Problems Problem Type SNOMED Code ICD Code Onset Dates Problem Status W/U Status Risk Notes Problem Spasm (67062309) Extensor tendon tightness, contracture (M62.40) Active confirmed Improvement Vital Signs Height 6 ft 0 in in 06/10/2024 Weight 199 lbs 06/10/2024 BMI 26.99 kg/m2 06/10/2024 Encounters Encounter Location Date Provider Diagnosis [facility] [place] [address] [place] [address] 06/10/2024 Bren Jesse Hammer toe of right foot M20.41 Assessments Encounter Date Diagnosis (ICD Code) Assessment Notes Treatment Notes Treatment Clinical Notes Section Notes 06/10/2024 Hammer toe of right foot (ICD-10 - M20.41) Improvement Plan Of Treatment Next Appt Details Follow Up: prn, Reason: Provider Name:Bren Ju lomax, 12/09/2024 03:00:00 PM, [address] [place] [address], [id number], Procedure Notes * Category Sub-Category Detail Notes Dressing Change: Type: bandaide Topical: bacitacin applied Removal of: sutures performed wi th sterile forceps/suture scissors or #15 blade, area cleaned with alcohol prior to removal Progress Notes * JANEGustavo TOVARDOB:[birth year] (78 yo M)Acc No.[id number]:06/10/2024 Patient:?Gustavo PIERRE Provider:?Bren Molina DPM :1945???Age:78 Y???Sex:Male Andrez e:06/10/2024 Address:[address] [place], [place] [phone] Pcp:Quinn Albert Subjective: * Chief Complaints: * ???Painful Toe(s) * HPI: ???Toe pain:?Location:?3rd toe, Right foot.?Treatments:?Flexor tenotomy.? * ROS:?General/Constitutional:?Nausea?denies.?Vomiting?denies.?Hunger Thirst?denies.?Loss appetite?denies.?Chills?denies.?Fatigue?denies.?Fever?denies.?Night Sweats?denies.?Unexplained weight loss?denies.?Unexplained weight gain?denies.?HEENTM:?Dentures?denies.?Dizziness?denies.?Glasses/contacts?denies.?Retinopathy?de nies.?Blurred/double vision?denies.?TMJ?denies.?Discharge/drainage?denies.?Implants?denies.?Sore throat?denies.?Dental implants?denies.?Hard of hearing ?admits.?Difficulty chewing/swallowing/speaking?denies.?Nose bleeds?denies.?Sore mouth?denies.?Respiratory:?On Oxygen?denies.?Pneumonia/pleurisy?denies.?Bronchitis?denies.?Emphysema?denies.?C oughing?denies.?Cough blood?denies.?Shortness of breath?denies.?Wheezing?denies.?Cardiovascular:?Pacemaker?denies.?MVP?denies.?WPW?denies.?CHF?denies.?Heart attack?admits.?Septal defect?denies.?Rapid beat?denies.?Chest pain ?denies.?Atrial Fib.?denies.?Murmur/Palpitations?denies.?Gastrointestinal:?Hemorrhoids?denies.?Stomach/Abdominal pain?denies.?Dark blood stool?denies.?Irritable bowel ?denies.?Constipation?denies.?Diarrhea?denies.?Hematology:?Swelling?denies.?Clots?denies.?Varicose Veins?denies.?Bruising?denies.?Bleeding problem?denies.?Genitourinary:?Blood urine?denies.?Frequent/Painfu/urination/bladder control?denies.?Kidney stones?denies.?Infection (UTI)?denies.?Nephropathy?denies.?sex trans dis (STD)?denies.?Prostate?denies.?Musculoskeletal:?Hammertoes?denies.?Bunions?denies.?Back Pain?denies.?Muscle Cramps/ Resting?denies.?Muscle cramps / walking?denies.?Generalized aches and pains?denies.?Weakness?denies.?Integ.:?[place]?denies.?Scars?denies.?Corns/calluses?admits.?Ingrown nails?denies.?Painful nails?denies.?Open Sores?denies.?Rashes?denies.?Neurologic:?Difficulty sleeping?denies.?Brain disorder?denies.?Numbness?denies.?Balance trouble?denies.?Confusion?denies.?Fainting/blackouts?denies.?Tingling?denies.?Tr emors?denies.? * Medical History:? * Surgical History:?heart surg [place] unspecified vascular surgery * Hospitalization/Major Diagno stic Procedure:?Denies Past Hospitalization * Family History:?Mother: dece ased.?Father: .? * Social History:?Tobacco Use:?Tobacco Use/Smoking?Are you a:?current smoker ?How often do you smoke cigarettes??every day ?How many cigarettes a day do you smoke??11-20 ?Tobacco use other than smoking?Are you an other tobacco user??No * Medications:?TakingTamsulosi n HCl 0.4 MG Capsule 1 capsule Orally Once a day Potassium Chloride ER 10 MEQ Tablet Extended Release 1 tablet with food Orally Twice a day Isosorbide Mononitrate ER 30 MG Tablet Extended Release 24 Hour 1 tablet in the morning Orally Once a day Cilostazol 100 MG Tablet 1 tablet 30 minutes before or 2 hours after breakfast and dinner Orally Twice a day Atorvastatin Calcium 80 MG Tablet 1 tablet Orally Once a day Atenolol 100 MG Tablet 1 tablet Orally Once a day Atenolol 50 MG Tablet 1 tablet Orally Once a day Apixaban 5 MG Tablet 1 tablet Orally Twice a day Medication List reviewed and reconciled with the patientTaking Tamsulosin HCl 0.4 MG Capsule 1 capsule Orally Once a day Taking Potassium Chloride ER 10 MEQ Tablet Extended Release 1 tablet with food Orally Twice a day Taking Isosorbide Mononitrate ER 30 MG Tablet Extended Release 24 Hour 1 tablet in the morning Orally Once a day Taking Cilostazol 100 MG Tablet 1 tablet 30 minutes before or 2 hours after breakfast and dinner Orally Twice a day Taking Atorvastatin Calcium 80 MG Tablet 1 tablet Orally Once a day Taking Atenolol 100 MG Tablet 1 tablet Orally Once a day Taking Atenolol 50 MG Tablet 1 tablet Orally Once a day Taking Apixaban 5 MG Tablet 1 tablet Orally Twice a day Medication List reviewed and reconciled with the patient * Allergies:?N.K.D.A.yes[Aller amina Verified] Objective: * Vitals:?Ht: 6 ft 0 in, Wt: 1 99, BMI: 26.99, Shoe size: 12, Wt-k.26 kg. * Examination: ???Orthopedic: ?DIGITAL DEFORMITIES:?NO FURTHER, Digital contracture, PIPJ, T7? Digit without pain and in rectus position with healed incision site.?Vascular: ?DP PULSES(B):? 0/4, B/L.?PT PULSES(B):? 0/4, B/L.?CAPILLARY FILL TIME:? delayed, all digits, B/L.?TROPHIC CONDITION-TEXTURE/ELASTICITY/TURGOR/HAIR GROWTH(B):? decreased, B/L.?TEMPERTURE GRADIENT(C):? decreased, cool to cool, proximal to distal, B/L.?PIGMENTATION:? pale, B/L.?EDEMA(C):? absent, B/L.?Dermatologic: ?SURGICAL SITE?Skin and Sutures intact, Incision edges are well aligned and adhered, CFT intact, No signs or symptoms consistent with infection T7.? Assessment: * Assessment: 1.?Hammer toe of right foot - M20.41 (Primary)???Notes :Improvement??? Plan: * Treatment: * Procedures:?Dressing Change::?Type:?bandaide.?Topical:?bacitacin applied.?Removal of:?sutures performed with sterile forceps/suture scissors or #15 blade, area cleaned with alcohol prior to removal.? * Procedure Codes:? * Preventive Medicine:? ??Counseling:?Post-op:?I reviewed with the patient the usual surgical post-op course. The patient is to call with any questions/complications, and will follow-up as scheduled, return to accom firm-soled shoe for stability and support, gradually increase activity to tolerance, Pt can begin showering per usual starting tomorrow, can apply abx ointment to incisions to help with scarring.? * Follow Up:?prn * Images: * Sign off status: Completed true * Provider:?Bren Molina DPM Date:? Generated for Ayad cooper/Bertha/Lara on:?11/18/2024 03:56 PM EDT History and Physical Notes * HPI (History of Present Illness) Category Sub-Category Detail Notes Category Not es Toe pain Location: 3rd toe, Right foot Treatments: Flexor tenotomy Examination Category Sub-Category Detail Notes Category Not es Dermatologic SURGICAL SITE Skin and Sutures intact, Incision edges are well aligned and adhered, CFT intact, No signs or symptoms consistent with infection T7 Orthopedic DIGITAL DEFORMITIES: NO FURTHER, Digital contracture, PIPJ, T7 Digit without pain and in rectus position with healed incision site Vascular DP PULSES (B): 0/4, B/L PT PULSES (B): 0/4, B/L CAPILLARY FILL TIME: delayed, all digits , B/L TEMPERTURE GRADIENT (C): decreased, cool to cool, proximal to distal, B/L TROPHIC CONDITION-TEXTURE/ELASTICITY/TURGOR/HAIR GROWTH (B): decreased, B/L EDEMA (C): absent, B/L PIGMENTATION: pale, B/L
--- OUTSIDE RECORDS SUMMARY | 2024-11-18 15:56 | XMS_ITS | Patient Health Record ---
Author Organization [facility] Address [address] [place] [address] Care Team Providers Care Manager Php Name Role Phone Yared LECHUGA, Krupa Mackenzie Primary Care Provider Un available Bren Molina Unavailable [phone] Allergies No Known Allergies Reason For Referral Diagnosis 1 Atherosclerosis of a rtery of both lower extremities (I70.203) Diagnosis 2 Hammer toe of left f oot (M20.42) Diagnosis 3 Hammer toe of right foot (M20.41) Diagnosis 4 Extensor tendon tigh tness, contracture (M62.40) Diagnosis 5 Pain in toe of right foot (M79.674) Diagnosis 6 Tinea unguium (B35.1 ) Diagnosis 7 Pain in toe of left foot (M79.675) Diagnosis 8 Pain of right heel ( M79.671) Diagnosis 9 Pain of left heel (M 79.672) Referring Provider First Name Krupa Andino Referring Provider Last Name Yared Referring Provider Speciality Internal M edicine Referred Organization [facility] Referred Provider Bren Molina Referred Address [address] [facility],[place],[address], Referred Provider Specialty Podiatry Referral Priority Routine Medications Medication SIG (Take, Route, Frequency, Duration) Notes Start Date End Date Status Apixaban 5 MG 1 tablet Orally Twic e a day Active Atenolol 50 MG 1 tablet Orally Once a day for 30 day(s) Active Atenolol 100 MG 1 tablet Orally Once [...] many cigarettes a day do you smoke? 11- Alcohol Screen Question Answer Notes Did you have a drink containing alcohol in the p ast year? No Points 0 Interpretation Negative Tobacco use other than smoking: Question Answer Notes Are you an other tobacco user? No Problems Problem Type SNOMED Code ICD Code Onset Dates Problem Status W/U Status Risk Notes Problem 779979869 Hammer toe of right foot (M20.41) Active confirmed Improvement Problem 256319463 Hammer toe of left foot (M20.42) Active confirmed Improvement Problem [id number] Atherosclerosi s of artery of both lower extremities (I70.203) Active confirmed Problem Spasm (16743606) Extensor tendon tightness, contracture (M62.40) Active confirmed Improvement Vital Signs Blood pressure diastolic 78 mm Hg 08/05/2024 Height 6 ft 0 in in 08/05/2024 Blood pressure systolic 123 mm Hg 08/05/2024 Weight 199 lbs 08/05/2024 BMI 26.99 kg/m2 08/05/2024 Encounters Encounter Location Date Provider Diagnosis [facility] [address] 11/27/2023 Bren Molina Atherosclerosis of artery of both lower extremities I70.203 ; Hammer toe of right foot M20.41 ; Pain in toe of left foot M79.675 ; Pain in toe of right foot M79.674 and Tinea unguium B35.1 [facility] [address] 02/26/2024 Bren Pericdami Atherosclerosis of artery of both lower extremities I70.203 ; Hammer toe of right foot M20.41 ; Pain in toe of left foot M79.675 ; Pain in toe of right foot M79.674 and Tinea unguium B35.[address] [address] 05/13/2024 Bren Perica Atherosclerosis of artery of both lower extremities I70.203 ; Hammer toe of right foot M20.41 ; Pain in toe of left foot M79.675 ; Pain in toe of right foot M79.674 and Tinea unguium B35.[address] [address] 06/03/2024 Bren Perica Atherosclerosis of artery of both lower extremities I70.203 ; Hammer toe of right foot M20.41 and Pain in toe of right foot M79.[address] [address] 06/10/2024 Bren Perica Hammer toe of right foot M20.[address] [address] 08/05/2024 Bren Perica Atherosclerosis of artery of both lower extremities I70.203 ; Pain in toe of left foot M79.675 ; Pain in toe of right foot M79.674 and Tinea unguium B35.1 Assessments Encounter Date Diagnosis (ICD Code) Assessment Notes Treatment Notes Treatment Clinical Notes Section Notes 11/27/2023 Atherosclerosis of artery of both lower extremities (ICD-10 - I70.203) 02/26/2024 Atherosclerosis of artery of both lower extremities (ICD-10 - I70.203) 05/13/2024 Atherosclerosis of artery of both lower extremities (ICD-10 - I70.203) 06/03/2024 Atherosclerosis of artery of both lower extremities (ICD-10 - I70.203) 06/10/2024 Hammer toe of right foot (ICD-10 - M20.41) Improvement 08/05/2024 Pain in toe of left foot (ICD-10 - M79.675) 08/05/2024 Atherosclerosis of artery of both lower extremities (ICD-10 - I70.203) 08/05/2024 Pain in toe of right foot (ICD-10 - M79.674) 06/03/2024 Hammer toe of right foot (ICD-10 - M20.41) 05/13/2024 Hammer toe of right foot (ICD-10 - M20.41) 02/26/2024 Hammer toe of right foot (ICD-10 - M20.41) 02/26/2024 Pain in toe of left foot (ICD-10 - M79.675) 11/27/2023 Hammer toe of right foot (ICD-10 - M20.41) 11/27/2023 Pain in toe of left foot (ICD-10 - M79.675) 02/26/2024 Pain in toe of right foot (ICD-10 - M79.674) 05/13/2024 Pain in toe of left foot (ICD-10 - M79.675) 08/05/2024 Tinea unguium (ICD-10 - B35.1) 05/13/2024 Pain in toe of right foot (ICD-10 - M79.674) 06/03/2024 Pain in toe of right foot (ICD-10 - M79.674) 11/27/2023 Pain in toe of right foot (ICD-10 - M79.674) 02/26/2024 Tinea unguium (ICD-10 - B35.1) 11/27/2023 Tinea unguium (ICD-10 - B35.1) 05/13/2024 Tinea unguium (ICD-10 - B35.1) Plan Of Treatment Pending Test Test Name Order Date X ray : Foot, left 3V 08/22/2022 X ray : Foot, right 3V 08/22/2022 Next Appt Details Provider Name:Bren lomax, 12/09/2024 03:00:00 PM, [address] [facility], [place], [address], Insurance Providers Payer Name Payer Address Payer Phone Subscriber Number Group Number Insured Name Patient Relationship to Insured Coverage Start Date Coverage End Date [employer] 65 Medicare Preferred [address] [place] [address] [id number] Gustavo Pierre Self - patient is the insured Medical (General) History Medical History History ICD Code Poor circulation Measles Mumps Chicken pox Surgical History Surgery Date(Month/Year) heart surgery unspecified vascular surgery
--- OUTSIDE RECORDS SUMMARY | 2024-11-18 15:56 | XMS_ITS ---
Author Organization [facility] Address [address] [facility] [place] [address] Care Team Providers Care Business Office Manager Name Role Phone Yared LECHUGA, Krupa Mackenzie Primary Care Provider Un available Bren Molina Unavailable [phone] Allergies No Known Allergies REASON FOR VISIT At Risk Footcare, Painful Nail(s) aggrevated by shoes and causing difficulty standing/walking. Medications Medication SIG (Take, Route, Frequency, Duration) [...] Are you an other tobacco user? No Vital Signs Height 6 ft 0 in in 08/05/2024 Weight 199 lbs 08/05/2024 BMI 26.99 kg/m2 08/05/2024 Blood pressure systolic 123 mm Hg 08/05/19 25 Blood pressure diastolic 78 mm Hg 025 Encounters Encounter Location Date Provider Diagnosis [facility] [address] [place] [address] 08/05/2024 Bren Pallavidami Atherosclerosis of artery of both lower extremities I70.203 ; Pain in toe of left foot M79.675 ; Pain in toe of right foot M79.674 and Tinea unguium B35.1 Assessments Encounter Date Diagnosis (ICD Code) Assessment Notes Treatment Notes Treatment Clinical Notes Section Notes 08/05/2024 Atherosclerosis of artery of both lower extremities (ICD-10 - I70.203) 08/05/2024 Pain in toe of left foot (ICD-10 - M79.675) 08/05/2024 Pain in toe of right foot (ICD-10 - M79.674) 08/05/2024 Tinea unguium (ICD-10 - B35.1) Plan Of Treatment Next Appt Details Follow Up: 4 Months, Reason: Provider Name:Brenfito lomax, 12/09/2024 03:00:00 PM, [address] [place], [address], Procedure Notes * Category Sub-Category Detail Notes Debride Nail 6-10 Nail debridement Due to the cl inical pathology outlined in the exam findings, performance of this nail treatment is medically necessary as its management by an unskilled/untrained nonprofessional would put this patients foot and overall health at risk. Therefore, debridement to affected nail(s), as described in exam ( TA, T1, T2, T3, T4, T5, T6, T7, T8, T9, ), was performed exclusively by the physician of record to reduce/remove overall nail length, girth, thickness, subungual debris, and necrotic tissue, by manual and/or electrical means through the use of a nail nipper and/or dremel-type steel grinder, to a more viable healthy nail plate or bed tissue 6-10 nails in total. Silver nitrate was used for any petechial bleeding as necessary. Definitive antifungal treatment options, both pharmaceutical and surgical, have been reviewed and discussed with the patient. The patient solely prefers the use of intermittent/as needed professional debridement services for their nail condition and understands the need for additional periodic treatments to maintain effectiveness in symptomatic relief - 46747 Progress Notes * Gustavo PIERREDOB:[birth year] (78 yo M)Acc No.[id number]:08/05/2024 Progress Note Patient:?Gustavo PIERRE Provider:?Bren Molina DPM :1945???Age:78 Y???Sex:Male Andrez e:08/05/2024 Address:[address] [place], [place] [id number] Pcp:Quinn Albert Subjective: * Chief Complaints: * ???At Risk FootcarePainful N ail(s) aggrevated by shoes and causing difficulty standing/walking. * HPI: ???At Risk footcare:?Pt States Last PCP Visit:?Date?09/05/2023 * ROS:?General/Constitutional:?Nausea?denies.?Vomiting?denies.?Hunger Thirst?denies.?Loss appetite?denies.?Chills?denies.?Fatigue?denies.?Fever?denies.?Night Sweats?denies.?Unexplained weight loss?denies.?Unexplained [...] than smoking?Are you an other tobacco user??No ???Miscellaneous:?Caffeine: yes, frequency:soda. ?Children: yes, 2. ?Exercise: no. ?Marital status: , . ?Occupation: Works Part-time. * Medications:?TakingTamsulosi n HCl 0.4 MG Capsule [...] and reconciled with the patient * Allergies:?N.K.D.A.yes[Aller gies Verified] Objective: * Vitals:?Ht: 6 ft 0 in, Wt: 1 99, BMI: 26.99, Shoe size: 12, BP: 123/78 mm Hg, Wt- k.26 kg. * Examination: ???Vascular: ?DP PULSES (B):? 0/4, B/L.?PT PULSES (B):? 0/4, B/L.?CAPILLARY FILL TIME:? delayed, all digits, B/L.?TROPHIC CONDITION-TEXTURE/ELASTICITY/TURGOR/HAIR GROWTH (B):? decreased, B/L.?TEMPERTURE GRADIENT (C):? decreased, cool to cool, proximal to distal, B/L.?PIGMENTATION:? pale, B/L.?EDEMA (C):? absent, B/L.?Nails: ?NAILS are:? Elongated, overgrown, dystrophic, lytic, greater than 3mm thick, discolored and friable with crumbly malodorous subungual debris, with pain on palpation, TA, T1, T2, T3, T4, T5, T6, T7, T8, T9.?Dermatologic: ?SKIN FINDINGS:?Skin exam reveals normal color, texture, elasticity, and turgor. There are no masses, nor excrescences. The interspaces are clear, B/L.? Assessment: * Assessment: 1.?Pain in toe of left foot - M79.675???2.?Atherosclerosis of artery of both lower extremities - I70.203 (Primary)???3.?Pain in toe of right foot - M79.674???4.?Tinea unguium - B35.1??? Plan: * Treatment: * Procedures:?Debride Nail 6-10:?Nail debridement?Due to the clinical pathology outlined in the exam findings, performance of this nail treatment is medically necessary as its management by an unskilled/untrained nonprofessional would put this patients foot and overall health at risk. Therefore, debridement to affected nail(s), as described in exam ( TA, T1, T2, T3, T4, T5, T6, T7, T8, T9, ), was performed exclusively by the physician of record to reduce/remove overall nail length, girth, thickness, subungual debris, and necrotic tissue, by manual and/or electrical means through the use of a nail nipper and/or dremel-type steel grinder, to a more viable healthy nail plate or bed tissue 6- 10 nails in total. Silver nitrate was used for any petechial bleeding as necessary. Definitive antifungal treatment options, both pharmaceutical and surgical, have been reviewed and discussed with the patient. The patient solely prefers the use of intermittent/as needed professional debridement services for their nail condition and understands the need for additional periodic treatments to maintain effectiveness in symptomatic relief - 65210.? * Procedure Codes:?55964 DEBRI DE NAIL, 6 OR MORE, Modifiers: XS * Follow Up:?4 Months * Images: * Sign off status: Completed true * Provider:?Bren Molina DPM Date:? Generated for Ayad cooper/Bertha/Lara on:?11/18/2024 03:56 PM EDT History and Physical Notes * HPI (History of Present Illness) Category Sub-Category Detail Notes Category Not es At Risk footcare Pt States Last PCP Visit: Date: Examination Category Sub-Category Detail Notes Category Not es Dermatologic SKIN FINDINGS: Skin exam reveal s normal color, texture, elasticity, and turgor. There are no masses, nor excrescences. The interspaces are clear, B/L Vascular DP PULSES (B): 0/4, B/L PT PULSES (B): 0/4, B/L CAPILLARY FILL TIME: delayed, all digits , B/L TEMPERTURE GRADIENT (C): decreased, cool to cool, proximal to distal, B/L TROPHIC CONDITION-TEXTURE/ELASTICITY/TURGOR/HAIR GROWTH (B): decreased, B/L EDEMA (C): absent, B/L PIGMENTATION: pale, B/L Nails NAILS are: Elongated, overg rown, dystrophic, lytic, greater than 3mm thick, discolored and friable with crumbly malodorous subungual debris, with pain on palpation, TA, T1, T2, T3, T4, T5, T6, T7, T8, T9
--- OUTSIDE RECORDS SUMMARY | 2024-11-18 15:57 | XMS_ITS ---
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 Name Role Phone Yared LECHUGA, Krupa Mackenzie Primary Care Provider Un available PallaviPetar lomaxen Unavailable [phone] Allergies No Known Allergies REASON FOR VISIT Painful Toe Medications Medication SIG (Take, Route, Frequency, Duration) Notes Start Date End Date Status Apixaban 5 MG 1 tablet Orally Twic e a day Active Atenolol 50 MG 1 tablet Orally Once a day for 30 day(s) Active Cilostazol 100 MG 1 tablet 30 minutes before or 2 hours after breakfast and dinner Orally Twice a day for 30 day(s) Active Atorvastatin Calcium 80 MG 1 tablet Oral ly Once a day for 30 day(s) Active Atenolol 100 MG 1 tablet Orally Once a day for 30 day(s) Active Isosorbide Mononitrate ER 30 MG 1 tablet in the morning Orally Once a day for 30 day(s) Active Tamsulosin HCl 0.4 MG 1 capsule Orally O nce a day for 30 day(s) Active Potassium Chloride ER 10 MEQ 1 tablet with food Orally Twice a day for 30 day(s) Active Social [...] Signs Height 6 ft 0 in in 06/03/2024 Weight 199 lbs 06/03/2024 BMI 26.99 kg/m2 06/03/2024 Encounters Encounter Location Date Provider Diagnosis [facility] [place] [address] [place] [address] 06/03/2024 Bren Molina Atherosclerosis of artery of both lower extremities I70.203 ; Hammer toe of right foot M20.41 and Pain in toe of right foot M79.674 Assessments Encounter Date Diagnosis (ICD Code) Assessment Notes Treatment Notes Treatment Clinical Notes Section Notes 06/03/2024 Atherosclerosis of artery of both lower extremities (ICD-10 - I70.203) 06/03/2024 Hammer toe of right foot (ICD-10 - M20.41) 06/03/2024 Pain in toe of right foot (ICD-10 - M79.674) Plan Of Treatment Next Appt Details Follow Up: 1 Week, Reason: Provider Name:Bren lomax, 12/09/2024 03:00:00 PM, [address] [place] [address], [address], Procedure Notes * Category Sub-Category Detail Notes Podiatry Procedure Tenotomy - Flexor (00839) Ski n sutured with Nylon in interrupted suture technique., LOCATION : T7 INDICATIONS : a painful non-rigid toe contrature at the PIPJ/DIPJ, Resistant to previous conservative treatment, ANESTHESIA : 3cc of 2 percent Lidocaine plain local anesthesic utilizing aseptic technique administered to each involved toe, PREP : The incision site was made surgically clean by applying betadine to the involved area, PROCEDURE : Once anesthesia was achieved, an incision was made at the flexor crease of the interphalangeal joint. The tendon was then transected in a medial to lateral sweeping motion. Any contracted plantar joint capsule was released as well. Skin sutured with Nylon in interrupted suture technique., Serile bandage were applied while splinting the toe in a rectus/corrected position, DISPOSITION : The patient tolerated the procedure and anesthesia well, and left the exam room awake, alert, and stable. The patient was instructed to take Tylenol or Motrin for discomfort, rest, ice for 10-15 minutes per hour, elevate the foot, and walk minimally until the next office visit. A surgical shoe was dispensed for ambulation. The patient is to maintain a clean surgical site, keeping it dry until the next visit Progress Notes * Chrissy PIERRE:[birth year] (78 yo M)Acc No.[id number]:06/03/2024 Patient:?Gustavo PIERRE Provider:?Bren Molina DPM :1945???Age:78 Y???Sex:Male Andrez e:06/03/2024 Address:[address] [place], [place] [id number] Pcp:Quinn Albert Subjective: * Chief Complaints: * ???Painful Toe * HPI: ???Toe pain:?Nature:?tenderness.?Location:?3rd toe Right foot.?Duration:?several months.?Course:?worse.?Aggravated by:?shoes, any pressure.?Treatments:?change in shoes hammertoe crutch-unable to wear, pt states is too tight, Pt had appt with [facility]-no intervention done.? * ROS:?General/Constitutional:?Nausea?denies.?Vomiting?denies.?Hunger Thirst?denies.?Loss appetite?denies.?Chills?denies.?Fatigue?denies.?Fever?denies.?Night Sweats?denies.?Unexplained weight loss?denies.?Unexplained [...] Shoe size: 12, Wt-k.26 kg. * Examination: ???Vascular: ?DP PULSES(B):? 0/4, B/L.?PT PULSES(B):? 0/4, B/L.?CAPILLARY FILL TIME:? delayed, all digits, B/L.?TROPHIC CONDITION-TEXTURE/ELASTICITY/TURGOR/HAIR GROWTH(B):? decreased, B/L.?TEMPERTURE GRADIENT(C):? decreased, cool to cool, proximal to distal, B/L.?PIGMENTATION:? pale, B/L.?EDEMA(C):? absent, B/L.?Dermatologic: ?SKIN FINDINGS:? Skin exam reveals Keratotic lesion(s) located at TA T5 T7 Heel(s) B/L .?Orthopedic: ?MUSCLE STRENGTH:?5/5 all groups in a symmetrical fashion , B/L.?FOOT MORPHOLOGY:? Pes Planus structure, Decreased Ankle joint dorsiflextion ROM, knee extended.?DIGITAL DEFORMITIES:? Digital contracture, PIPJ, 2-5 B/L, incompl- reducable with WB, or to push-up test, no over, nor underlapping, Reveals bulbous distal digit with inflammation and Pain on Palpation T7.?Neurological: ?SENSORY:?Neurological exam reveals intact sensorium, pain sensation normal, vibration sensation intact, pinprick sensation is normal in the lower extremities, Pt denies, anesthesia, burning, paresthesia, tingling, B/L.? Assessment: * Assessment: 1.?Atherosclerosis of artery of both lower extremities - I70.203???2.?Hammer toe of right foot - M20.41 (Primary)???Specify :Chronic problem, Worse (4)???3.?Pain in toe of right foot - M79.674??? Plan: * Treatment: * Procedures:?Podiatry Procedure:?Tenotomy - Flexor (12555)?Skin sutured with Nylon in interrupted suture technique., LOCATION : T7 INDICATIONS : a painful non-rigid toe contrature at the PIPJ/DIPJ, Resistant to previous conservative treatment, ANESTHESIA : 3cc of 2 percent Lidocaine plain local anesthesic utilizing aseptic technique administered to each involved toe, PREP : The incision site was made surgically clean by applying betadine to the involved area, PROCEDURE : Once anesthesia was achieved, an incision was made at the flexor crease of the interphalangeal joint. The tendon was then transected in a medial to lateral sweeping motion. Any contracted plantar joint capsule was released as well. Skin sutured with Nylon in interrupted suture technique., Serile bandage were applied while splinting the toe in a rectus/corrected position, DISPOSITION : The patient tolerated the procedure and anesthesia well, and left the exam room awake, alert, and stable. The patient was instructed to take Tylenol or Motrin for discomfort, rest, ice for 10-15 minutes per hour, elevate the foot, and walk minimally until the next office visit. A surgical shoe was dispensed for ambulation. The patient is to maintain a clean surgical site, keeping it dry until the next visit.? * Procedure Codes:?35108 INCIS ION OF FOOT TENDON(S) * Preventive Medicine:? ??Counseling:?Digital Surgery:?FLEXOR: Digital surgery was discussed with the patient, FLEXOR TENOTOMY AND CAPSULOTOMY FOR T 7, : Because the deformity was flexible enough in nature, I recommended a Minimal Incision digital procedure consisting of Flexor Tendon/Joint Release was discussed with the patient, including the risks/complications of the procedure (described below) vs not having the procedure (persistent pain, deformity, risk for skin ulceration/infection, loss of toe). The potential procedure complications include, but are not limited to: pain, swelling, bleeding, scarring, numbness, infection, delayed/non healing, floppy/unstable/shorthened toe, recurrence, failure of the procedure, overcorrection leading to plantarflexed/downward/upward positioned toe, recurrence, need for further surgery, as well as the possibility for loss of the toe itself. We discussed the use of local anesthesia, and the usual post-op course for healing. No guarentees were given. The patient verbally indicated a full understanding of the above conversation, and any other of their questions were answered to their satisfaction. The patient would like to procede with the proposed surgical treatment, reviewed vascular consutl with [facility], no intervention done. Discussed with pt the increased risk of nonhealing or complication given circulation. Pt aware of risks and wants to proceed with flexor tenotomy.? * Follow Up:?1 Week * Images: * Sign off status: Completed true * Provider:?Bren Molina DPM Date:?06/2024 Generated for Ayad cooper/Bertha/Lara on:?11/18/2024 03:56 PM EDT History and Physical Notes * HPI (History of Present Illness) Category Sub-Category Detail Notes Category Not es Toe pain Nature: tenderness Location: 3rd toe Right foot Duration: several months Course: worse Aggravated by: shoes, any pressure Treatments: change in shoes joan ertoe crutch-unable to wear, pt states is too tight, Pt had appt with [facility]-no intervention done Examination Category Sub-Category Detail Notes Category Not es Neurological SENSORY: Neurological exa m reveals intact sensorium, pain sensation normal, vibration sensation intact, pinprick sensation is normal in the lower extremities, Pt denies, anesthesia, burning, paresthesia, tingling, B/L Dermatologic SKIN FINDINGS: Skin exam reveal s Keratotic lesion(s) located at TA T5 T7 Heel(s) B/L Orthopedic FOOT MORPHOLOGY: Pes Planus stru cture, Decreased Ankle joint dorsiflextion ROM, knee extended DIGITAL DEFORMITIES: Digital contracture , PIPJ, 2-5 B/L, incompl-reducable with WB, or to push-up test, no over, nor underlapping, Reveals bulbous distal digit with inflammation and Pain on Palpation T7 MUSCLE STRENGTH: 5/5 all groups in a symmetrical fashion , B/L Vascular DP PULSES (B): 0/4, B/L PT PULSES (B): 0/4, B/L CAPILLARY FILL TIME: delayed, all digits , B/L TEMPERTURE GRADIENT (C): decreased, cool to cool, proximal to distal, B/L TROPHIC CONDITION-TEXTURE/ELASTICITY/TURGOR/HAIR GROWTH (B): decreased, B/L EDEMA (C): absent, B/L PIGMENTATION: pale, B/L
== END 2024-11-18 14:13 | disposition home or self-care (01) ==
LOC: HO.HCS 13:47
PROVIDERS: PCP Internal Medicine; Visit Provider Internal Medicine Cardiovascular Disease
DX: I48.19 Other persistent atrial fibrillation (principal); I25.10 Atherosclerotic heart disease of native coronary artery without angina pectoris
CPT/HCPCS: 93010; 99214

== ENCOUNTER → 2024-11-18 13:47 | Outpatient (BNVA) | payer BC, SELFPAY | PROVIDERS: PCP Internal Medicine; Visit Provider Internal Medicine Cardiovascular Disease | DX: I48.19 Other persistent atrial fibrillation (principal); I25.10 Atherosclerotic heart disease of native coronary artery without angina pectoris; Z79.01 Long term (current) use of anticoagulants; Z79.899 Other long term (current) drug therapy | CPT/HCPCS: 93005 ==

== ENCOUNTER 2025-01-14 08:44 | Outpatient (REF) | payer BC, SELFPAY ==
--- OUTSIDE RECORDS SUMMARY | 2025-01-14 09:14 | XMS_ITS | Patient Health Record ---
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 Name Role Phone Yared LECHUGA, Krupa Mackenzie Primary Care Provider Un available Bren Molina Unavailable [phone] Allergies No Known Allergies Reason For Referral [...] Provider Speciality Internal M edicine [facility] Referred Provider Bren Molina Referred Address [address] [facility],[place],[address], Referred Provider Specialty Podiatry Referral Priority Routine [...] Problem Status W/U Status Risk Notes Problem [id number] Hammer toe of right foot (M20.41) Active confirmed Improvement Problem [id number] Hammer toe of left foot (M20.42) Active confirmed Improvement Problem [id number] Atherosclerosi s of artery of both lower extremities (I70.203) Active confirmed Problem Extensor tendon tightness, contracture (M62.40) Active confirmed Improvement Vital Signs Blood pressure diastolic 78 mm Hg 08/05/2024 Height 6 ft 0 in in 08/05/2024 Blood pressure systolic 123 mm Hg 08/05/2024 Weight 199 lbs 08/05/2024 BMI 26.99 kg/m2 08/05/2024 Encounters Encounter Location Date Provider Diagnosis [facility] [address] [address] 02/26/2024 Bren Perica Atherosclerosis of artery of both lower extremities I70.203 ; Hammer toe of right foot M20.41 ; Pain in toe of left foot M79.675 ; Pain in toe of right foot M79.674 and Tinea unguium B35.[address] [facility] [address] 05/13/2024 Bren Perica Atherosclerosis of artery of both lower extremities I70.203 ; Hammer toe of right foot M20.41 ; Pain in toe of left foot M79.675 ; Pain in toe of right foot M79.674 and Tinea unguium B35.[address] [address] 06/03/2024 Bren Perica Atherosclerosis of artery of both lower extremities I70.203 ; Hammer toe of right foot M20.41 and Pain in toe of right foot M79.[address] [address] 06/10/2024 Bren Perica Hammer toe of right foot M20.[address] [address] 08/05/2024 Bren Perica Atherosclerosis of artery of both lower extremities I70.203 ; Pain in toe of left foot M79.675 ; Pain in toe of right foot M79.674 and Tinea unguium B35.1 Assessments Encounter Date Diagnosis (ICD Code) Assessment Notes Treatment Notes Treatment Clinical Notes Section Notes 02/26/2024 Atherosclerosis of artery of both lower [...] M79.674) 02/26/2024 Tinea unguium (ICD-10 - B35.1) 05/13/2024 Tinea unguium (ICD-10 - B35.1) Plan Of Treatment Pending Test Test Name Order Date X ray : Foot, left 3V 08/22/2022 X ray : Foot, right 3V 08/22/2022 Insurance Providers Payer Name Payer Address Payer Phone Subscriber Number Group Number Insured Name Patient Relationship to Insured Coverage Start Date Coverage End Date [employer] 65 Medicare [address]erred [address] [place] [address] [id number] Gustavo Pierre Self - patient is the insured Medical (General) History Medical History History ICD Code Poor circulation Measles Mumps Chicken pox Surgical History Surgery Date(Month/Year) heart surgery unspecified vascular surgery
[2025-01-14 10:27] LABS: PSA,Total (Free>4and<10) 4.18 ng/mL (0.00-4.00)
[2025-01-16 12:58] LABS: Free Prostate Spec Ag 0.3 ng/mL; Percent Free Prostate Spec Ag 7 % (calc) (>25); Prostate Specific Ag Total 4.2 ng/mL (< OR = 4.0)
== END 2025-01-14 08:45 | disposition home or self-care (01) ==
LOC: HO.10HDL 08:44
PROVIDERS: Visit Provider Urology
DX: N40.0 Benign prostatic hyperplasia without lower urinary tract symptoms (principal); R97.20 Elevated prostate specific antigen [PSA]; Z12.5 Encounter for screening for malignant neoplasm of prostate
CPT/HCPCS: 36415; 84153; 84154

== ENCOUNTER 2025-02-02 14:45 | Outpatient (AMB) | payer BC, SELFPAY ==
--- NOTE | 2025-02-02 14:48 | MHC.OFFVIS ---
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 Required: No Accompanied by: Self / Same As Patient Allergies No Known Allergies Allergy (Verified 02/02/25 15:24) Medication List - Last Reconciled 02/02/25 by Claudette Pink MD apixaban 5 mg PO BID atenolol 100 mg PO DAILY atenolol 50 mg PO DAILY atorvastatin 80 mg PO DAILY cholecalciferol (vitamin D3) 1,250 mcg PO QWEEK 3 months cilostazol 100 mg PO BID finasteride (Proscar) 5 mg PO DAILY 90 days isosorbide mononitrate ER 30 mg PO DAILY potassium chloride ER 10 mEq PO DAILY tamsulosin 0.4 mg PO BEDTIME HPI Comments Details: 02/02/25--Gustavo is a 79-year-old male who was initially evaluated on 01/1924 for elevated PSA. He had been on tamsulosin and was started on Proscar 5 mg daily follow-up PSA. PSA 01/14/25--4.18 History of Present Illness - The patient is an 79-year-old male presenting with follow-up for elevated PSA and BPH. - Elevated PSA and BPH, managed with Proscar and tamsulosin. - The most recent PSA level was 4.18, slightly above the normal range, but considered reasonable by the physician. - Urinalysis showed 1+ blood, indicating microscopic hematuria, pt denies visible blood in the urine. - A renal ultrasound conducted in April 2024 showed kidneys and bladder within normal limits. - The patient has a history of nicotine dependency. Plan - Continue current medications: Proscar 5 mg daily and tamsulosin 0.4 mg daily. - Schedule a cystoscopy further eval for microscopic hematuria. Results - PSA level: 4.18 (measured on 01/14/25) - Urinalysis: 1+ blood, negative leukocytes - Renal ultrasound (April 2024): Kidneys and bladder within normal limits 07/17/24--Gustavo is a 78-year-old male who was initially evaluated on 01/1924 for elevated PSA. He had been on tamsulosin and was started on Proscar 5 mg daily follow-up PSA on 06/1924 was discussed: 3.60 ng/mL. Also reviewed with the patient renal ultrasound 04/2024 is within normal limits. Will continue finasteride and tamsulosin. Monitor PSA follow-up in. 02/08/24--Gustavo is a 78 year old male who is here for evaluation for elevated PSA. PMH significant CAD, PVD on eliquis. Comorbidity Nicotine dependency. He states he smokes about a pack a day. He is on tamsulosin, he states that if he forgets to take this medication he does notice it change in his urination otherwise he has no complaints regarding urination. He denies dysuria or gross hematuria. I have discussed PSA is a blood test, prostate specific antigen and is an enzyme secreted by the prostate gland. Elevated PSA may be due to multiple conditions including prostate inflammatory condition, enlarged prostate or prostate cancer. Prostate exam - no suspicious nodules palpated, irregular left > right. Discussed course of Proscar 5 mg daily. Repeat PSA in 4 months. 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 Mother No problems noted. Family/Other AAA (abdominal aortic aneurysm) CVD (cardiovascular disease) Cancer Social History Housing: House Patient Tobacco Use Status: Current everyday Tobacco user Cigarette Packs Per Day: 1 Cigarettes Per Day: 20 e-Cigarette/Vaping Use: Never Used service: No Current occupational status: employed Cognitive needs: No Hearing needs: No Vision needs: No Review of Systems Const All systems reviewed & are unremarkable except as noted in HPI and below Reports no additional complaints Eyes Reports no additional complaints ENT Reports no additional complaints Card Reports no additional complaints Resp Reports no additional complaints GI Reports no additional complaints Reports as per HPI Musc Reports no additional complaints Skin/Breast Reports system reviewed and no additional complaints, except as documented Neuro Reports no additional complaints Psych Reports no additional complaints Endo Reports no additional complaints Remigio/Lymph Reports no additional complaints Aller/Immun Reports no additional complaints Results Reviewed Results Reviewed: Date of Service: 05/12/24 US RETROPERITONEAL COMPLETE (RENAL) CLINICAL INFORMATION: Benign prostatic hyperplasia without lower urinary tract symptoms. COMPARISON: CTA of the abdomen, pelvis and lower extremity runoff with contrast 04/12/2017. TECHNIQUE: Real-time imaging of the kidneys and bladder. Limited visualization due to bowel gas. FINDINGS: RIGHT KIDNEY: 10.3 x 4.8 x 5.6 cm (SAG x AP x TRV). No hydronephrosis. No renal calculi. Renal cortical thickness is normal. Limited visualization. LEFT KIDNEY: 12.5 x 5.4 x 5.3 cm (SAG x AP x TRV). No hydronephrosis. No renal calculi. Renal cortical thickness is normal. Limited visualization. BLADDER: Moderately distended Bilateral ureteral jets are demonstrated. Prevoid bladder volume is 150 mL. Postvoid bladder volume is 92.6 mL. PROSTATE GLAND: The prostate gland is enlarged with a volume of 37.1 mL. IMPRESSION: 1. No hydronephrosis. No renal calculi. Limited visualization. 2. Prevoid bladder volume is 150 mL. Postvoid bladder volume is 92.6 mL. 3. The prostate gland is enlarged with a volume of 37.1 mL. Assessment & Plan Assessment & Plan (1) BPH with elevated PSA: Code(s): N40.0 - Benign prostatic hyperplasia without lower urinary tract symptoms; R97.20 - Elevated prostate specific antigen [PSA] Category: Medical (2) Microscopic hematuria: Code(s): R31.29 - Other microscopic hematuria Category: Medical Plan Plan - Continue current medications: Proscar 5 mg daily and tamsulosin 0.4 mg daily. - Schedule a cystoscopy further eval for microscopic hematuria. Medications: Refilled tamsulosin 0.4 mg PO BEDTIME 90 caps 3RF N40.0 - Benign prostatic hyperplasia without lower urinary tract symptoms finasteride (Proscar) 5 mg PO DAILY 90 tabs 3RF 90 days Patient Instructions: The patient had an opportunity to ask questions regarding treatment plan. The patient expressed understanding and agreement with the above treatment plan. The patient is aware they should contact our office by phone for worsening of their current condition or the appearance of new symptoms. Compliance is encouraged with any medications and followup testing that is ordered. It is a privilege to be allowed the opportunity to participate in the urologic care of your patient. If you have any questions or concerns regarding treatment for the above conditions please do not hesitate to contact me. The office telephone contact is [phone]. This note is constructed in part using voice recognition software. While every effort has been made to ensure accuracy build and deployment engineer errors may have been included. Yours sincerely, Claudette Pink MD Scribe Plan - Not visible on output: Patient was informed and verbally consented to the use of an ambient scribe for clinic note documentation during this visit. Coding Level of Care Code Est Pt Level 4 (17425) Diagnoses BPH with elevated PSA N40.0; R97.20 Microscopic hematuria R31.29
--- OUTSIDE RECORDS SUMMARY | 2025-02-02 16:01 | XMS_ITS | Patient Health Record ---
Author Organization [facility] [place] Address [address] [place] [address] Care Team Providers Care Vp Purchasing Name Role Phone Yared LECHUGA, Krupa Mackenzie Primary Care Provider Un available Bren Molina Unavailable [phone] Allergies No Known Allergies Reason For Referral [...] Provider Speciality Internal M edicine [facility] Referred Provider Bren Molina Referred Address [address] [facility],[place],[address], Referred Provider Specialty Podiatry Referral Priority Routine Medications Medication SIG (Take, Route, Frequency, Duration) Notes Start Date End Date Status Apixaban 5 MG 1 tablet Orally Twic e a day Active Atenolol 50 MG 1 tablet Orally Once a day; Duration: 30 day(s) Active Atenolol 100 MG 1 tablet Orally Once a day; Duration: 30 day(s) Active Atorvastatin Calcium 80 MG 1 tablet Oral ly Once a day; Duration: 30 day(s) Active Cilostazol 100 MG 1 tablet 30 minutes before or 2 hours after breakfast and dinner Orally Twice a day; Duration: 30 day(s) Active Isosorbide Mononitrate ER 30 MG 1 tablet in the morning Orally Once a day; Duration: 30 day(s) Active Potassium Chloride ER 10 MEQ 1 tablet with food Orally Twice a day; Duration: 30 day(s) Active Tamsulosin HCl 0.4 MG 1 capsule Orally O nce a day; Duration: 30 day(s) Active Social History Tobacco Use: [...] Problem Status W/U Status Risk Notes Problem Acquired hammer toe of right foot (1107817861684408 ) Hammer toe of right foot (M20.41) Active confirmed Improvement Problem Acquired hammer toe of left foot (4201263045101524 ) Hammer toe of left foot (M20.42) Active confirmed Improvement Problem Bilateral atherosclerosis of arteries of lower limbs (disorder) (1582553784947646 7) Atherosclerosis of artery of both lower extremities (I70.203) Active confirmed Problem Spasm (07116009) Extensor tendon tightness, contracture (M62.40) Active confirmed Improvement Vital Signs Blood pressure diastolic 78 mm Hg 08/05/2024 Height 6 ft 0 in in 08/05/2024 Blood pressure systolic 123 mm Hg 08/05/2024 Weight 199 lbs 08/05/2024 BMI 26.99 kg/m2 08/05/2024 Encounters Encounter Location Date Provider Diagnosis [facility] [address] [place] [address] 02/26/2024 Bren Molina Atherosclerosis of artery of both lower extremities I70.203 ; Hammer toe of right foot M20.41 ; Pain in toe of left foot M79.675 ; Pain in toe of right foot M79.674 and Tinea unguium B35.[address] [address] 05/13/2024 Bren Perica Atherosclerosis of artery of both lower extremities I70.203 ; Hammer toe of right foot M20.41 ; Pain in toe of left foot M79.675 ; Pain in toe of right foot M79.674 and Tinea unguium B35.[address] [address] 06/03/2024 Bren Perica Atherosclerosis of artery of both lower extremities I70.203 ; Hammer toe of right foot M20.41 and Pain in toe of right foot M79.[address] [address] 06/10/2024 Bren Perica Hammer toe of right foot M20.[address] [address] 08/05/2024 Bren Perica Atherosclerosis of artery of [...] 08/22/2022 Next Appt Details Provider Name:Bren lomax, 02/20/2025 01:00:00 PM, [address] [facility], [place], [address], Insurance Providers Payer Name Payer Address Payer Phone Subscriber Number Group Number Insured Name Patient Relationship to Insured Coverage Start Date Coverage End Date [facility] 65 Medicare Preferred [address] [place] [address] [id number] Gustavo Pierre Self - patient is the insured Medical (General) History Medical History History ICD Code Poor circulation Measles Mumps Chicken pox Surgical History Surgery Date(Month/Year) heart surgery unspecified vascular surgery
--- OUTSIDE RECORDS SUMMARY | 2025-02-02 16:01 | XMS_ITS | Patient Health Record ---
Author Organization [facility] Address [address] [place] [address] Care Team Providers Care Receiving Inspector Name Role Phone Yared LECHUGA, Krupa Primary Care Provider Miguelangel Shannon Jr Unavailable [phone] Reason For Referral No Information Medications Medication SIG (Take, Route, Frequency, Duration) Notes Start Date End Date Status Isosorbide Mononitrate ER Active Dicyclomine HCl Acti ve Flomax Active Atenolol 100 MG 1 tablet Orally Once a day Active Tamsulosin HCl Activ e Eliquis Active Cilostazol Active Atorvastatin Calcium 80 MG TAKE 1 TABLET ONCE A DAY ORALLY 30 DAY(S) Oral for 30 Active Immunizations Vaccine Route Administration Date Status Comme nts Influenza Unknown 02/25/2020 Administered Social History Tobacco Use: Social History Observation Description Date Details (start date - stop date) Current Smoker NA - NA Tobacco Use/Smoking Question Answer Notes Patient is a current smoker How often do you smoke cigarettes? every day How many cigarettes a day do you smoke? 6-10 How soon after you wake up do you smoke your fir st cigarette? 31-60 minutes Are you interested in quitting? 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.82) Active confirmed Plan Of Treatment Pending Test Test Name Order Date CT COLON SCREENING NO CONTRAST 8 US ABD 07/24/2012 Future Test Test Name Order Date COLONOSCOPY 03/29/2012 COLONOSCOPY 11/01/2017 Insurance Providers Payer Name Payer Address Payer Phone Subscriber Number Group Number Insured Name Patient Relationship to Insured Coverage Start Date Coverage End Date [facility] [employer] [facility] [address] [place] [address] [id number] AUSTIN SALMON Self - patient is the insured Medical (General) History Medical History History ICD Code coronary artery disease Denies DM,CVA,Lung disease,renal disease hyperlipidemia hypertension Surgical History Surgery Date(Month/Year) CABG x3 2004 appendectomy
== END 2025-02-02 15:43 | disposition home or self-care (01) ==
LOC: HO.HUSH 14:46
PROVIDERS: PCP Internal Medicine; Visit Provider Urology
DX: N40.0 Benign prostatic hyperplasia without lower urinary tract symptoms (principal); R97.20 Elevated prostate specific antigen [PSA]; R31.29 Other microscopic hematuria; Z13.9 Encounter for screening, unspecified
CPT/HCPCS: 99214

== ENCOUNTER 2025-02-02 16:20 | Outpatient (REF) | payer BC, SELFPAY | END 2025-02-02 16:21 | disposition home or self-care (01) | LOC: HO.LAB 16:20 | PROVIDERS: Visit Provider Urology | DX: R97.20 Elevated prostate specific antigen [PSA] (principal); N40.0 Benign prostatic hyperplasia without lower urinary tract symptoms; R31.29 Other microscopic hematuria; Z79.899 Other long term (current) drug therapy; Z79.01 Long term (current) use of anticoagulants | CPT/HCPCS: 81003; 88112 ==

== ENCOUNTER 2025-03-03 12:48 | Outpatient (AMB) | payer BC, SELFPAY ==
[2025-03-03 12:50] VITALS: BP 110/60; PULSE 85; RESP 18; TEMP 36.6; O2SAT 95; BMI 27.8
--- NOTE | 2025-03-03 12:50 | A.OFFPC_ITS ---
Vital Signs 03/03/25 12:50 Height 6 ft Weight 205 lb BMI 27.8 BP 110/60 Blood Pressure Location Lt brachial Position Sitting Respiration 18 Pulse 85 Pulse Source Pulse Oximeter Temp 97.9 F Temp Source Oral Pulse Oximetry (%) 95 Oxygen Delivery Method Room Air Intake Visit Reasons: Annual PE Intake Note: Pt is here today for his PE: Allergies No Known Allergies Allergy (Verified 03/03/25 13:39) Medication List - Last Reconciled 03/03/25 by Krupa Vail MD apixaban 5 mg PO BID atenolol 100 mg PO DAILY atenolol 50 mg PO DAILY atorvastatin 80 mg PO DAILY cilostazol 100 mg PO BID finasteride (Proscar) 5 mg PO DAILY 90 days isosorbide mononitrate ER 30 mg PO DAILY potassium chloride ER 10 mEq PO DAILY tamsulosin 0.4 mg PO BEDTIME Tobacco use date assessed: 03/03/25 Fall risk assessment: No Falls in past year Last assessed Fall Risk: 03/03/25 Dental Screening Dental Screen Date: 03/03/25 Did you have a dental visit in the last 12 months?: Yes Did you have a dental problem in the last 6 months where you did not have access to dental care?: No Was dental information given to patient?: Patient has dentist HPI Annual PE HPI Details 79-year-old male presents today for his physical exam. 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 He had an ANDREA 12/31/2024 that showed right ANDREA at 0.41 with Flattening waveform..He is currently on Eliquis and atorvastatin, continued on cilostazol and is scheduled to follow-up with them in six-months after ANDREA testing again done. Patient however states that he has only been taking his Eliquis every other day as he has started having spontaneous bruising on forearms. Is currently being followed by [facility] urology for benign prostatic hyperplasia with elevated PSA and urinary symptoms as well as microscopic hematuria. Currently on Proscar and tamsulosin has an appointment scheduled 04/06/2025 for cystoscopy . Received one shingles vaccine and is due for a second dose. He is up to date with pneumonia vaccinations and receives an annual flu shot. Had a screening colonoscopy done 01/30/[address] Harris, with removal of 2 tubular adenomas and 1 hyperplastic polyp, to be repeated in 2022. [facility] Medical History (Updated 03/05/25 @ 11:02 by Krupa Vail MD) Decreased hearing of both ears Elevated PSA, less than 10 ng/ml Peripheral arterial disease with history of revascularization Smokes one pack per day or less and unmotivated to quit Persistent atrial fibrillation HTN (hypertension) Hyperlipidemia CAD (coronary artery disease) Surgical History History of repair of aneurysm of abdominal aorta using endovascular stent graft Hx of aorto-femoral bypass Hx of heart bypass surgery Hx of colonoscopy Hx of basal cell carcinoma excision Family History Father No problems noted. Mother No problems noted. Family/Other AAA (abdominal aortic aneurysm) CVD (cardiovascular disease) Cancer Social History Housing: House Patient Tobacco Use Status: Current everyday Tobacco user Cigarette Packs Per Day: 1 Cigarettes Per Day: 20 e-Cigarette/Vaping Use: Never Used service: No Current occupational status: employed Cognitive needs: No Hearing needs: No Vision needs: No Questionnaire PHQ-9 Over the last 2 weeks, how often have you been bothered by any of the following problems? 48815 - PHQ-9 Billing: Patient declined-do not bill Source: Developed by Drs. Alonso Dave, Juanita Gtz, Satish Alonso and colleagues, with an educational donald from [employer]. Thrive Questionnaire Date Thrive assessed: 03/03/25 What is your living situation today?: I have a steady place to live Within the past 12 months, did the food you bought not last and you didn't have the money to get more?: Never true Do you have trouble paying for medicines?: No Do you have trouble getting transportation to medical appointments?: No Do you have trouble paying your heating and electricity bill?: No Do you have trouble taking care of your child, family member or friend?: No Do you have trouble with day-to-day activities such as bathing, preparing meals, shopping, managing finances, etc.?: No Are you currently unemployed and looking for a job?: No Are you interested in more education?: Yes Please select the resources that you would like help with: None Currently or been in a relationship where the following occur: No concerns re ported THRIVE Score: 0 AUDIT C Alcohol Use Questionnaire (AUDIT-C) 1. How often do you have a drink containing alcohol?: Never 2. How many drinks containing alcohol do you have on a typical day when you are drinking?: 1 or 2 3. How often do you have six or more drinks on one occasion?: Never Total Score: 0 Score Reviewed/Action Taken: Yes ARTUR-7 AMB Questionnaire ARTUR-7 Date ARTUR - 7 assessed: 03/03/25 Feeling nervous, anxious, or on edge: 0 = Not at all Not being able to stop or control worryin = Not at all Worrying too much about different things: 0 = Not at all Trouble relaxin = Not at all Being so restless that it is hard to sit still: 0 = Not at all Becoming easily annoyed or irritable: 0 = Not at all Feeling afraid as if something awful might happen: 0 = Not at all Total ARTUR-7 score (0-4 normal; 5-9 mild; 10-14 moderate; 15-21 severe): 0 Source: Developed by Drs. Alonso Dave, Juanita Gtz, Satish Alonso and colleagues, with an educational donald from [employer]. ARTUR-7 Assessment Billing ARTUR-7 Assessment Tool: ARTUR-7 Assessment 57734 Physical exam (Primary Care) Vital Signs: Last Vital Signs Temp 97.9 F 03/03/25 12:50 Pulse 85 03/03/25 12:50 Resp 18 03/03/25 12:50 BP 110/60 03/03/25 12:50 Pulse Ox 95 03/03/25 12:50 Oxygen Delivery Method Room Air 03/03/25 12:50 BMI result Body Mass Index 27.8 Tobacco/Smoking Status: Tobacco use Status Tobacco use date assessed 03/03/25 03/03/25 12:51 Patient Tobacco Use Status Current everyday Tobacco 03/03/25 12:51 e-Cigarette/Vaping Use Never Used 03/03/25 12:51 Thrive Assessment: Date of Thrive Assessment Date Thrive assessed 03/03/25 03/03/25 12:59 Currently or been in a relationship where the following occur: No concerns reported Coding Level of Care Code Est Pt Prev Care >65y(79944) Diagnoses Decreased hearing of both ears H91.93 Primary hypertension I10 Hypertension type: primary hypertension Coronary artery disease involving [place] coronary artery of [place] heart without angina pectoris I25.10 Coronary Disease-Associated Artery/Lesion type: [place] artery [place] vs. transplanted heart: [place] heart Associated angina: without angina Persistent atrial fibrillation I48.19 Peripheral arterial disease with history of revascularization I73.9; Z98.890 Benign prostate hyperplasia N40.0 BPH with elevated PSA N40.0; R97.20 Smokes one pack per day or less and unmotivated to quit F17.210 Annual visit for general adult medical examination with abnormal findings Z00.01 Additional Codes ARTUR-7 Assessment Billing - ARTUR-7 Assessment Tool: ARTUR-7 Assessment 50795 ([id number]) Assessment & Plan Assessment & Plan (1) Decreased hearing of both ears: Code(s): H91.93 - Unspecified hearing loss, bilateral Category: Medical (2) HTN (hypertension): Code(s): I10 - Essential (primary) hypertension Category: Medical Qualifiers: Hypertension type: primary hypertension Qualified Code(s): I10 - Essential (primary) hypertension (3) CAD (coronary artery disease): Code(s): I25.10 - Atherosclerotic heart disease of [place] coronary artery without angina pectoris Category: Medical Qualifiers: Coronary Disease-Associated Artery/Lesion type: [place] artery [place] vs. transplanted heart: [place] heart Associated angina: without angina Qualified Code(s): I25.10 - Atherosclerotic heart disease of [place] coronary artery without angina pectoris (4) Persistent atrial fibrillation: Code(s): I48.19 - Other persistent atrial fibrillation Category: Medical (5) Peripheral arterial disease with history of revascularization: Code(s): I73.9 - Peripheral vascular disease, unspecified; Z98.890 - Other specified postprocedural states Category: Medical (6) Benign prostate hyperplasia: Code(s): N40.0 - Benign prostatic hyperplasia without lower urinary tract symptoms Category: Medical (7) BPH with elevated PSA: Code(s): N40.0 - Benign prostatic hyperplasia without lower urinary tract symptoms; R97. 20 - Elevated prostate specific antigen [PSA] Category: Medical (8) Smokes one pack per day or less and unmotivated to quit: Code(s): F17.210 - Nicotine dependence, cigarettes, uncomplicated Category: Social Hx (9) Annual visit for general adult medical examination with abnormal findings: Code(s): Z00.01 - Encounter for general adult medical examination with abnormal findings Plan The patient is scheduled for a follow-up prostate cancer screening with Dr. Arizmendi in [place], with an appointment set for March. This is part of ongoing surveillance to ensure early detection and management of potential prostate issues, with Cystoscopy planned Ordered a fasting lipid panel and basic metabolic panel. Has hyperlipidemia currently on atorvastatin 80 mg daily Preventative care measures include updating the shingles vaccination, as the patient has only received one dose. The patient is up to date with pneumonia vaccinations and receives an annual flu shot Followed at [facility] vascular surgery for his peripheral arterial disease, currently on cilostazol Complains of decreased hearing in both ears, referred to speech and hearing center in [place] for further evaluation management Has persistent atrial fibrillation currently followed by cardiology currently on apixaban 5 mg 1 tablet twice a day and atenolol 150 mg daily. Last colonoscopy was done in [address] Harris with removal of 2 tubular adenomas, overdue to get his repeat colonoscopy in 2022. Patient however does not want to get any for her testing Patient was informed and verbally consented to the use of an ambient scribe for clinic note documentation during this visit. Orders: Orders Lipid Panel Today I10 - Essential (primary) hypertension, I25.10 - Atherosclerotic heart disease of [place] coronary artery without angina pectoris, I73.9 - Peripheral vascular disease, unspecified, Z98.890 - Other specified postprocedural states Aspartate Amino Transferase Today I10 - Essential (primary) hypertension, I25.10 - Atherosclerotic heart disease of [place] coronary artery without angina pectoris, I73.9 - Peripheral vascular disease, unspecified, Z98.890 - Other specified postprocedural states Basic Metabolic Panel Fasting Today I10 - Essential (primary) hypertension, I25.10 - Atherosclerotic heart disease of [place] coronary artery without angina pectoris, I73.9 - Peripheral vascular disease, unspecified, Z98.890 - Other specified postprocedural states Alanine Aminotransferase Today I10 - Essential (primary) hypertension, I25.10 - Atherosclerotic heart disease of [place] coronary artery without angina pectoris, I73.9 - Peripheral vascular disease, unspecified, Z98.890 - Other specified postprocedural states Referrals Speech and Hearing Referral H91.93 - Unspecified hearing loss, bilateral
--- OUTSIDE RECORDS SUMMARY | 2025-03-03 13:31 | XMS_ITS | Patient Health Record ---
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 (Z79.82) Active confirmed Plan Of Treatment Pending Test Test Name Order Date CT COLON SCREENING NO CONTRAST 8 US ABD 07/24/2012 Future Test Test Name Order Date COLONOSCOPY 03/29/2012 COLONOSCOPY 11/01/2017 Insurance Providers Payer Name Payer Address Payer Phone Subscriber Number Group Number Insured Name Patient Relationship to Insured Coverage Start Date Coverage End Date [facility] [employer] CLAIMS [address] [place] [address] [id number] AUSTIN SALMON Self - patient is the insured Medical (General) History Medical History History ICD Code coronary artery disease Denies DM,CVA,Lung disease,renal disease hyperlipidemia hypertension Surgical History Surgery Date(Month/Year) CABG x3 2004 appendectomy
--- OUTSIDE RECORDS SUMMARY | 2025-03-03 13:31 | XMS_ITS | Patient Health Record ---
Author Organization [facility] Address [address] [place] [address] Care Team Providers Care Wholesale Account Executive Name Role Phone Yared LECHUGA, Krupa Mackenzie Primary Care Provider Un available Bren Molina Unavailable [phone] Allergies No Known Allergies Reason For Referral [...] Provider Speciality Internal M edicine Referred Organization [facility] Richard Referred Provider Bren Molina Referred Address [address] [facility],[place], [place],[address], Referred Provider Specialty Podiatry Referral Priority Routine Medications Medication SIG (Take, Route, Frequency, Duration) Notes Start Date End Date Status Isosorbide Mononitrate ER 30 MG 1 tablet in the morning Orally Once a day; Duration: 30 day(s) Active Cilostazol 100 MG 1 tablet 30 minutes before or 2 hours after breakfast and dinner Orally Twice a day; Duration: 30 day(s) Active Tamsulosin HCl 0.4 MG 1 capsule Orally O nce a day; Duration: 30 day(s) Active Potassium Chloride ER 10 MEQ 1 tablet with food Orally Twice a day; Duration: 30 day(s) Active Atorvastatin Calcium 80 MG 1 tablet Oral ly Once a day; Duration: 30 day(s) Active Atenolol 100 MG 1 tablet Orally Once a day; Duration: 30 day(s) Active Atenolol 50 MG 1 tablet Orally Once a day; Duration: 30 day(s) Active Apixaban 5 MG 1 tablet Orally Twic e a day Active Immunizations Vaccine Route Administration Date Status Comme nts Influenza Unknown 02/20/2025 Refused Social History Tobacco Use: Social History Observation Description Date Details (start date - stop date) Current Smoker NA - NA Tobacco Use/Smoking Question Answer Notes Are you a: current smoker How often do you smoke cigarettes? every day How many cigarettes a day do you smoke? 06-11 Alcohol Screen Question Answer Notes Did you have a drink containing alcohol in the p ast year? No Points 0 Interpretation Negative Tobacco use other than smoking: Question Answer Notes Are you an other tobacco user? No AUDIT-C (Standard) Question Answer Notes Did you have a drink containing alcohol in the p ast year? No Points 0 Interpretation Negative Problems Problem Type SNOMED Code ICD Code Onset Dates Problem Status W/U Status Risk Notes Problem Atherosclerosis of artery of both lower extremities (I70.203) Active confirmed Vital Signs Blood pressure diastolic 80 mm Hg 02/20/2025 Height 6 ft 0 in in 02/20/2025 Blood pressure systolic 122 mm Hg 02/20/2025 Weight 210 lbs 02/20/2025 BMI 28.48 kg/m2 02/20/2025 Encounters Encounter Location Date Provider Diagnosis [facility] [address] [address] 05/13/2024 Bren Molina Atherosclerosis of artery of both lower extremities I70.203 ; Hammer toe of right foot M20.41 ; Pain in toe of left foot M79.675 ; Pain in toe of right foot M79.674 and Tinea unguium B35.[address] [facility] [address] 06/03/2024 Bren Pericdami Atherosclerosis of artery of both lower extremities I70.203 ; Hammer toe of right foot M20.41 and Pain in toe of right foot M79.[address] [address] 06/10/2024 Bren Perica Hammer toe of right foot M20.[address] [address] 08/05/2024 Bren Perica Atherosclerosis of artery of both lower extremities I70.203 ; Pain in toe of left foot M79.675 ; Pain in toe of right foot M79.674 and Tinea unguium B35.[address] [address] 02/20/2025 Bren Perica Atherosclerosis of artery of both lower extremities I70.203 ; Pain in toe of left foot M79.675 ; Pain in toe of right foot M79.674 and Tinea unguium B35.1 Assessments Encounter Date Diagnosis (ICD Code) Assessment Notes Treatment Notes Treatment Clinical Notes Section Notes 05/13/2024 Atherosclerosis of artery of both lower extremities (ICD-10 - I70.203) 06/03/2024 Atherosclerosis of artery of both lower extremities (ICD-10 - I70.203) 06/10/2024 Hammer toe of right foot (ICD-10 - M20.41) Improvement 08/05/2024 Pain in toe of left foot (ICD-10 - M79.675) 08/05/2024 Atherosclerosis of artery of both lower extremities (ICD-10 - I70.203) 02/20/2025 Atherosclerosis of artery of both lower extremities (ICD-10 - I70.203) 02/20/2025 Pain in toe of left foot (ICD-10 - M79.675) 08/05/2024 Pain in toe of right foot (ICD-10 - M79.674) 06/03/2024 Hammer toe of right foot (ICD-10 - M20.41) 05/13/2024 Hammer toe of right foot (ICD-10 - M20.41) 05/13/2024 Pain in toe of left foot (ICD-10 - M79.675) 08/05/2024 Tinea unguium (ICD-10 - B35.1) 02/20/2025 Pain in toe of right foot (ICD-10 - M79.674) 02/20/2025 Tinea unguium (ICD-10 - B35.1) 05/13/2024 Pain in toe of right foot (ICD-10 - M79.674) 06/03/2024 Pain in toe of right foot (ICD-10 - M79.674) 05/13/2024 Tinea unguium (ICD-10 - B35.1) Plan Of Treatment Pending Test Test Name Order Date X ray : Foot, left 3V 08/22/2022 X ray : Foot, right 3V 08/22/2022 Next Appt Details Provider Name:Bren lomax, 06/30/2025 01:30:00 PM, [address] [place], [address], Insurance Providers Payer Name Payer Address Payer Phone Subscriber Number Group Number Insured Name Patient Relationship to Insured Coverage Start Date Coverage End Date Blue[employer] 65 Medicare Preferred [address] [place] [address] [id number] Gustavo Pierre Self - patient is the insured Medical (General) History Medical History History ICD Code Poor circulation Measles Mumps Chicken pox Surgical History Surgery Date(Month/Year) heart surgery unspecified vascular surgery
== END 2025-03-03 13:41 | disposition home or self-care (01) ==
LOC: HO.HMCC 12:49
PROVIDERS: PCP Internal Medicine; Visit Provider Internal Medicine
DX: Z00.01 Encounter for general adult medical examination with abnormal findings (principal); H91.93 Unspecified hearing loss, bilateral; I10 Essential (primary) hypertension; I25.10 Atherosclerotic heart disease of native coronary artery without angina pectoris; I48.19 Other persistent atrial fibrillation; I73.9 Peripheral vascular disease, unspecified; Z98.890 Other specified postprocedural states; N40.0 Benign prostatic hyperplasia without lower urinary tract symptoms; R97.20 Elevated prostate specific antigen [PSA]; F17.210 Nicotine dependence, cigarettes, uncomplicated

== ENCOUNTER → 2025-03-03 12:48 | Outpatient (BNVA) | payer BC, SELFPAY | PROVIDERS: PCP Internal Medicine; Visit Provider Internal Medicine | DX: Z00.01 Encounter for general adult medical examination with abnormal findings (principal); R31.29 Other microscopic hematuria; H91.93 Unspecified hearing loss, bilateral; I10 Essential (primary) hypertension; I25.10 Atherosclerotic heart disease of native coronary artery without angina pectoris; I48.19 Other persistent atrial fibrillation; I73.9 Peripheral vascular disease, unspecified; N40.0 Benign prostatic hyperplasia without lower urinary tract symptoms; R97.20 Elevated prostate specific antigen [PSA]; F17.210 Nicotine dependence, cigarettes, uncomplicated; Z79.01 Long term (current) use of anticoagulants; Z98.890 Other specified postprocedural states | CPT/HCPCS: 96127 ==

== ENCOUNTER 2025-04-06 14:59 | Outpatient (AMB) | payer BC, SELFPAY ==
--- OUTSIDE RECORDS SUMMARY | 2024-12-09 11:00 | XMS_ITS ---
Author Organization [facility] Address [address] [place] [address] Care Team Providers Care Director Consumer Affairs Name Role Phone Yared LECHUGA, Krupa Mackenzie Primary Care Provider Un available Bren Molina Unavailable [phone] Vale Encounters Encounter Location Date Provider Diagnosis [facility] [address] [place] [address] 12/09/2024 Bren Molina Plan Of Treatment Next Appt Details Provider Name:Bren lomax, 06/30/2025 01:30:00 PM, [address] [place], [address], Progress Notes * Gustavo PIERREDOB:[birth year] (79 yo M)Acc No.[id number]:12/09/2024 Progress Note Patient: Gustavo FONTAINE Provider: Juventino Molina DPM :1945 A ge:79 Y S ex:Male Date:12/09/2024 Address:[address] [place], [place] Pcp:Quinn Albert Subjective: * Chief Complaints: * [address] Vale[address] * Medical History: Objective: * Vitals: Assessment: Plan: * Treatment: * Images: * The named appointment provid er may or may not be the originator of this progress note, and it is not deemed complete until electronically signed by the appointment provider. Sign off status: Pending * Provider: Juventino Molina, VIKRAM Date: 0 12/09/2024 Generated for Ayad cooper/Bertha/Lara on: 0 04/06/2025 08:26 PM EDT
--- NOTE | 2025-04-06 15:20 | MHC.OFFVIS ---
Intake Visit Reasons: cysto Intake Note: Patient is present for a cystoscopy Urology Med: Finasteride,Potassium,Tamsulosin Antibiotic Allergy: None Blood Thinner: Adrian Lot:[id number] Exp:10/16/27 Bridge Carpenter Required: No Accompanied by: Self / Same As Patient Allergies No Known Allergies Allergy (Verified 04/06/25 15:20) Medication List - Last Reconciled 04/06/25 by Claudette Pink MD apixaban 5 mg PO BID atenolol 100 mg PO DAILY atenolol 50 mg PO DAILY atorvastatin 80 mg PO DAILY cilostazol 100 mg PO BID finasteride (Proscar) 5 mg PO DAILY 90 days isosorbide mononitrate ER 30 mg PO DAILY potassium chloride ER 10 mEq PO DAILY tamsulosin 0.4 mg PO BEDTIME HPI Comments Details: 04/06/25--Gustavo presents for office cystoscopy he is followed for BPH managed with Proscar and tamsulosin. He was noted to have microscopic hematuria. He was seen last in the office on 02/02/2025 urine was sent for cytology which came back negative for malignant cells. Prior upper tract imaging renal ultrasound April 2024 kidneys within normal limits. History of Present Illness The patient is an 79-year-old male presenting with a follow-up for Benign Prostatic Hyperplasia and evaluation of microscopic hematuria. The patient has been managed for Benign Prostatic Hyperplasia with Proscar and tamsulosin. He was noted to have microscopic hematuria, for which urine cytology was performed and returned negative for malignant cells. Previous renal ultrasound conducted in April 2024 showed kidneys within normal limits. The patient has a history of cigarette smoking, which is a risk factor for bladder and kidney cancers. Results - Urine cytology: Negative for malignant cells - Renal ultrasound (April 2024): Kidneys within normal limits Plan 1. Benign Prostatic Hyperplasia - Continue current medications: Proscar and tamsulosin - Follow-up in six months with renal ultrasound and post-void residual check 2. Microscopic Hematuria - Urine cytology was negative for malignant cells - Continue monitoring with follow-up in six months 02/02/25--Gustavo is a 79-year-old male who was initially evaluated on 01/1924 for elevated PSA. He had been on tamsulosin and was started on Proscar 5 mg daily follow-up PSA. PSA 01/14/25--4.18 History of Present Illness - The patient is an 79-year-old male presenting with follow-up for elevated PSA and BPH. - Elevated PSA and BPH, managed with Proscar and tamsulosin. - The most recent PSA level was 4.18, slightly above the normal range, but considered reasonable by the physician. - Urinalysis showed 1+ blood, indicating microscopic hematuria, pt denies visible blood in the urine. - A renal ultrasound conducted in April 2024 showed kidneys and bladder within normal limits. - The patient has a history of nicotine dependency. Plan - Continue current medications: Proscar 5 mg daily and tamsulosin 0.4 mg daily. - Schedule a cystoscopy further eval for microscopic hematuria. Results - PSA level: 4.18 (measured on 01/14/25) - Urinalysis: 1+ blood, negative leukocytes - Renal ultrasound (April 2024): Kidneys and bladder within normal limits 07/17/24--Gustavo is a 78-year-old male who was initially evaluated on 01/1924 for elevated PSA. He had been on tamsulosin and was started on Proscar 5 mg daily follow-up PSA on 06/1924 was discussed: 3.60 ng/mL. Also reviewed with the patient renal ultrasound 04/2024 is within normal limits. Will continue finasteride and tamsulosin. Monitor PSA follow-up in. 02/08/24--Gustavo is a 78 year old male who is here for evaluation for elevated PSA. PMH significant CAD, PVD on eliquis. Comorbidity Nicotine dependency. He states he smokes about a pack a day. He is on tamsulosin, he states that if he forgets to take this medication he does notice it change in his urination otherwise he has no complaints regarding urination. He denies dysuria or gross hematuria. I have discussed PSA is a blood test, prostate specific antigen and is an enzyme secreted by the prostate gland. Elevated PSA may be due to multiple conditions including prostate inflammatory condition, enlarged prostate or prostate cancer. Prostate exam - no suspicious nodules palpated, irregular left > right. Discussed course of Proscar 5 mg daily. Repeat PSA in 4 months. 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 Mother No problems noted. Family/Other AAA (abdominal aortic aneurysm) CVD (cardiovascular disease) Cancer Social History Housing: House Patient Tobacco Use Status: Current everyday Tobacco user Cigarette Packs Per Day: 1 Cigarettes Per Day: 20 e-Cigarette/Vaping Use: Never Used service: No Current occupational status: employed Cognitive needs: No Hearing needs: No Vision needs: No Review of Systems Const All systems reviewed & are unremarkable except as noted in HPI and below Reports no additional complaints Eyes Reports no additional complaints ENT Reports no additional complaints Card Reports no additional complaints Resp Reports no additional complaints GI Reports no additional complaints Reports as per HPI Musc Reports no additional complaints Skin/Breast Reports system reviewed and no additional complaints, except as documented Neuro Reports no additional complaints Psych Reports no additional complaints Endo Reports no additional complaints Remigio/Lymph Reports no additional complaints Aller/Immun Reports no additional complaints Office Procedures Cystoscopy Consent Discussed risk and benefit or proposed procedure with the patient. Information consent for procedure given to the patient. Discussed technical aspects, risks, benefits and alternatives in full. Addressed all of the patient's questions and concerns regarding the procedure. The patient demonstrated knowledge and understanding. They wish to proceed with this procedure. Preparation The patient was prepped in the usual manner. A chlorine cells operator was present and in the room. Genitalia was prepped with betadine solution in a sterile manner. Lidocaine Jelly 2% was placed into the urethra and 16Fr flexible Olympus cystoscope was inserted into the meatus after adequate lubrication. [id number] DISPOSABLE SCOPE URO-G FLEXIBLE SCOPE Procedure code (CPT) selection complete Office Meds lidocaine HCl 2 % mucosal jelly in applicator Performing Provider: Claudette Pink MD Performing Location: [facility] [place] [facility] Administered by: Hiren Nash LPN on 04/06/25 15:35 Dose Route Admin Location Dispensed Lot Number Expiration Date ND Ventilating Engineer 10 mL intra-urethral 20 mL nitrofurantoin monohydrate/macrocrystals 100 mg capsule Performing Provider: Claudette Pink MD Performing Location: [facility] [place] [facility] Administered by: Hiren Nash LPN on 04/06/25 15:35 Dose Route Admin Location Dispensed Lot Number Expiration Date NDC Ventilating Engineer 100 mg PO 1 cap phenazopyridine 200 mg tablet Performing Provider: Claudette Pink MD Performing Location: [facility] [place] [facility] Administered by: Hiren Nash LPN on 04/06/25 15:35 Dose Route Admin Location Dispensed Lot Number Expiration Date NDC Ventilating Engineer 200 mg PO 1 tab Results Reviewed Results Reviewed: Collected: 02/02/25 Location: .LAB Received: 02/03/25 Diagnosis Urine: Negative for high-grade urothelial carcinoma. See comment. COMMENT: Cellular specimen consisting of single urothelial cells with reactive and degenerative changes, squamous cells, red blood cells and acute inflammatory cells. Clinical History Microscopic hematuria Material Received Urine Gross Description Received is 11 cc of cloudy yellow-camacho fluid from which a ThinPrep slide is prepared. Date of Service: 05/12/24 US RETROPERITONEAL COMPLETE (RENAL) CLINICAL INFORMATION: Benign prostatic hyperplasia without lower urinary tract symptoms. COMPARISON: CTA of the abdomen, pelvis and lower extremity runoff with contrast 04/12/2017. TECHNIQUE: Real-time imaging of the kidneys and bladder. Limited visualization due to bowel gas. FINDINGS: RIGHT KIDNEY: 10.3 x 4.8 x 5.6 cm (SAG x AP x TRV). No hydronephrosis. No renal calculi. Renal cortical thickness is normal. Limited visualization. LEFT KIDNEY: 12.5 x 5.4 x 5.3 cm (SAG x AP x TRV). No hydronephrosis. No renal calculi. Renal cortical thickness is normal. Limited visualization. BLADDER: Moderately distended Bilateral ureteral jets are demonstrated. Prevoid bladder volume is 150 mL. Postvoid bladder volume is 92.6 mL. PROSTATE GLAND: The prostate gland is enlarged with a volume of 37.1 mL. IMPRESSION: 1. No hydronephrosis. No renal calculi. Limited visualization. 2. Prevoid bladder volume is 150 mL. Postvoid bladder volume is 92.6 mL. 3. The prostate gland is enlarged with a volume of 37.1 mL. Assessment & Plan Assessment & Plan (1) Smokes one pack per day or less and unmotivated to quit: Code(s): F17.210 - Nicotine dependence, cigarettes, uncomplicated Category: Social Hx (2) BPH with elevated PSA: Code(s): N40.0 - Benign prostatic hyperplasia without lower urinary tract symptoms; R97.20 - Elevated prostate specific antigen [PSA] Category: Medical (3) Microscopic hematuria: Code(s): R31.29 - Other microscopic hematuria Category: Medical Plan Plan 1. Benign Prostatic Hyperplasia - Continue current medications: Proscar and tamsulosin - Follow-up in six months with renal ultrasound and post-void residual check 2. Microscopic Hematuria - Urine cytology was negative for malignant cells - Continue monitoring with follow-up in six months Orders: Orders AMB Cystoscopy Today N40.0 - Benign prostatic hyperplasia without lower urinary tract symptoms, R31.29 - Other microscopic hematuria, R97.20 - Elevated prostate specific antigen [PSA] AMB Urinalysis Automated Today 210 - Nicotine dependence, cigarettes, uncomplicated, N40.0 - Benign prostatic hyperplasia without lower urinary tract symptoms, R31.29 - Other microscopic hematuria, R97.20 - Elevated prostate specific antigen [PSA], Z13.9 - Encounter for screening, unspecified US renal BI 6 Months F17.210 - Nicotine dependence, cigarettes, uncomplicated, N40.0 - Benign prostatic hyperplasia without lower urinary tract symptoms, R31.29 - Other microscopic hematuria, R97.20 - Elevated prostate specific antigen [PSA] PSA,Total (Free>4and<10) 6 Months F17.210 - Nicotine dependence, cigarettes, uncomplicated, N40.0 - Benign prostatic hyperplasia without lower urinary tract symptoms, R31.29 - Other microscopic hematuria, R97.20 - Elevated prostate specific antigen [PSA] Patient Instructions: The patient had an opportunity to ask questions regarding treatment plan. The patient expressed understanding and agreement with the above treatment plan. The patient is aware they should contact our office by phone for worsening of their current condition or the appearance of new symptoms. Compliance is encouraged with any medications and followup testing that is ordered. It is a privilege to be allowed the opportunity to participate in the urologic care of your patient. If you have any questions or concerns regarding treatment for the above conditions please do not hesitate to contact me. The office telephone contact is [phone]. This note is constructed in part using voice recognition software. While every effort has been made to ensure accuracy engineering director errors may have been included. Yours sincerely, Claudette Pink MD Scribe Plan - Not visible on output: Patient was informed and verbally consented to the use of an ambient scribe for clinic note documentation during this visit. Coding Level of Care Code Procedure Only Diagnoses Smokes one pack per day or less and unmotivated to quit F17.210 BPH with elevated PSA N40.0; R97.20 Microscopic hematuria R31.29 CPT Codes Cystoscopy - CPT: [id number] ([id number])
--- OUTSIDE RECORDS SUMMARY | 2025-04-06 20:26 | XMS_ITS | Patient Health Record ---
[facility] Organization [facility] Address [address] [place] [address] Care Team Providers Care Door Clamp Operator Name Role Phone Yared LECHUGA, Krupa Primary [...] Problem Status W/U Status Risk Notes Problem [id number] Colon cancer screening (Z12.11) Active confirmed Problem [id number] Encounter for other preprocedural examination (Z01.818) Active confirmed Problem [id number] [facility] (current) use of aspirin (Z79.82) Active confirmed Plan Of Treatment Pending Test Test Name Order Date CT COLON SCREENING NO CONTRAST 8 US ABD 07/24/2012 Future Test Test Name Order Date COLONOSCOPY 03/29/2012 COLONOSCOPY 11/01/2017 Insurance Providers Payer Name Payer Address Payer Phone Subscriber Number Group Number Insured Name Patient Relationship to Insured Coverage Start Date Coverage End Date [facility] [employer] [address] [place] [address] [id number] A[place]IN SALMON Self - patient is the insured Medical (General) History Medical History History ICD Code coronary artery disease Denies DM,CVA,Lung disease,renal disease hyperlipidemia hypertension Surgical History Surgery Date(Month/Year) CABG x3 2004 appendectomy
--- OUTSIDE RECORDS SUMMARY | 2025-04-06 20:26 | XMS_ITS | Patient Health Record ---
Author Organization [facility] Address [address] [place] [address] Care Team Providers Care Molder Closed Molds Name Role Phone Yared LECHUGA, Krupa Mackenzie Primary Care Provider Un available Bren Molina Unavailable [phone] Allergies No Known Allergies Reason For Referral [...] Provider Speciality Internal M edicine Referred Organization [facility] [place] Referred Provider Bren Molina Referred Address [address] [facility],[address], Referred Provider Specialty Podiatry Referral Priority Routine [...] Problem Status W/U Status Risk Notes Problem Bilateral atherosclerosis of arteries of lower limbs (disorder) ([id number] ) Atherosclerosis of artery of both lower extremities (I70.203) Active confirmed Vital Signs Blood pressure diastolic 80 mm Hg 02/20/2025 Height 6 ft 0 in in 02/20/2025 Blood pressure systolic 122 mm Hg 02/20/2025 Weight 210 lbs 02/20/2025 BMI 28.48 kg/m2 02/20/2025 Encounters Encounter Location Date Provider Diagnosis [facility] [address] 05/13/2024 Bren Molina Atherosclerosis of artery of both lower extremities I70.203 ; Hammer toe of right foot M20.41 ; Pain in toe of left foot M79.675 ; Pain in toe of right foot M79.674 and Tinea unguium B35.1 [facility] [address] 06/03/2024 Bren Molina Atherosclerosis of artery of both lower extremities I70.203 ; Hammer toe of right foot M20.41 and Pain in toe of right foot M79.[address] [address] 06/10/2024 Bren Perica Hammer toe of right foot M20.[address] [address] 08/05/2024 Bren Perica Atherosclerosis of artery of both lower extremities I70.203 ; Pain in toe of left foot M79.675 ; Pain in toe of right foot M79.674 and Tinea unguium B35.[address] [address] 02/20/2025 Bren Perica Atherosclerosis of artery of [...] of right foot (ICD-10 - M20.41) Improvement 02/20/2025 Atherosclerosis of artery of both lower extremities (ICD-10 - I70.203) 08/05/2024 Pain in toe of left foot (ICD-10 - M79.675) 08/05/2024 Atherosclerosis of artery of both lower extremities (ICD-10 - I70.203) 08/05/2024 Pain in toe of right foot (ICD-10 - M79.674) 02/20/2025 Pain in toe of left foot (ICD-10 - M79.675) 06/03/2024 Hammer toe of right foot (ICD-10 - M20.41) 05/13/2024 Hammer toe of right foot (ICD-10 - M20.41) 05/13/2024 Pain in toe of left foot (ICD-10 - M79.675) 02/20/2025 Pain in toe of right foot (ICD-10 - M79.674) 08/05/2024 Tinea unguium (ICD-10 - B35.1) 02/20/2025 Tinea unguium (ICD-10 - B35.1) 05/13/2024 [...] Provider Name:Bren lomax, 06/30/2025 01:30:00 PM, [address] [place], [address], Insurance Providers Payer Name Payer Address Payer Phone Subscriber Number Group Number Insured Name Patient Relationship to Insured Coverage Start Date Coverage End Date [facility] 65 Medicare Preferred [address] [place] [address] [phone] [id number] Gustavo Pierre Self - patient is the insured Medical (General) History Medical History History ICD Code Poor circulation Measles Mumps Chicken pox Surgical History Surgery Date(Month/Year) heart surgery unspecified vascular surgery
== END 2025-04-06 15:50 | disposition home or self-care (01) ==
LOC: HO.HUSH 15:00
PROVIDERS: PCP Internal Medicine; Visit Provider Urology
DX: N40.0 Benign prostatic hyperplasia without lower urinary tract symptoms (principal); R97.20 Elevated prostate specific antigen [PSA]; R31.29 Other microscopic hematuria; F17.210 Nicotine dependence, cigarettes, uncomplicated; Z13.9 Encounter for screening, unspecified
CPT/HCPCS: 52000

== ENCOUNTER → 2025-04-06 14:59 | Outpatient (BNVA) | payer BC, SELFPAY | PROVIDERS: PCP Internal Medicine; Visit Provider Urology | DX: N40.0 Benign prostatic hyperplasia without lower urinary tract symptoms (principal); R31.29 Other microscopic hematuria; R97.20 Elevated prostate specific antigen [PSA] | CPT/HCPCS: 52000; 81003 ==